=== PATIENT | male | born 1965 | race Caucasian/White ===

== ENCOUNTER 2018-03-09 10:20 | Inpatient (IN) ==
--- NOTE | 2018-03-09 11:03 | Emergency Department Note ---
Disposition Clinical Impression: Suicidal ideation Depression Qualifiers: Depression Type: unspecified Qualified Code(s): F32.9 - Major depressive disorder, single episode, unspecified Disposition: Admitted As Inpatient Condition: Undetermined Time of Disposition: 18:06 Psych HPI - General Chief Complaint: ED Psychiatric Symptoms Stated Complaint: SI,psych eval, depressed Time Seen by Provider: 03/09/18 10:46 Source: patient Mode of arrival: ambulatory Limitations: no limitations Nursing Notes Reviewed: Yes Vital Signs Reviewed: Yes - History of Present Illness HPI Narrative: Nontoxic-appearing 53-year-old male presents for evaluation of worsening depression and thoughts of self-harm. He has battled worsening depression for the past couple months. He states that over the past 2 days, he has had thoughts of harming himself. He denies any active plan. He denies any thoughts of harming others. He states significant life stressors at home over the past couple of months that have led to this. Pt complaint: suicidal ideation, feels depressed Onset (ago): month(s) Duration: getting worse Improves with: none Worsens with: none Context: significant life stressor Associated Psychiatric Symptoms: depression, suicidal ideation Associated symptoms: Reports: denies other symptoms Traumatic symptoms: denies traumatic injury Self harm or harm to others: denies having a plan - Related Data Home Medications Medication Instructions Recorded Confirmed Naproxen [Naprosyn] 500 mg PO BID 08/26/16 03/09/18 Tamsulosin [Flomax] 0.4 mg PO DAILY 03/09/18 03/09/18 Venlafaxine [Effexor] 75 mg PO BID 03/09/18 03/09/18 Allergies Allergy/AdvReac Type Severity Reaction Status Date / Time No Known Allergies Allergy Verified 03/09/18 16:04 All systems ED: reviewed and negative except as stated. Constitutional: Denies: fever, chills, weakness, weight change Eyes: Denies: eye pain, eye discharge, vision change ENT ED: Denies: ear pain, throat pain, dental pain, hearing loss, epistaxis, congestion, dysphagia Cardiovascular: Denies: chest pain, palpitations, dyspnea on exertion, edema, syncope Respiratory: Denies: cough, dyspnea, wheezes, hemoptysis, stridor Gastrointestinal: Denies: abdominal pain, nausea, vomiting, diarrhea, constipation, hematemesis, melena, hematochezia Genitourinary: Denies: urgency, dysuria, frequency, hematuria Musculoskeletal: Denies: back pain, neck pain, arthralgia, myalgia Integumentary: Denies: rash, abrasion, lesions Neurological: Denies: headache, weakness, numbness, paresthesias, confusion, abnormal gait, vertigo Psychiatric: Reports: as per HPI, depression, suicidal thoughts. Denies: anxiety, homicidal thoughts, auditory hallucinations, visual hallucinations Endocrine: Denies: fatigue Hematological/Lymphatic: Denies: easy bleeding, easy bruising Allergic/Immunologic: Denies: facial swelling, urticaria Past Medical History - Past Medical History Attestation: Yes The following information was validated with the patient. Source: patient, nursing notes reviewed Medical history: Reports: other Psychiatric history: Reports: depression - Social History Smoking Status: Current every day smoker Smokeless Tobacco Status: No Alcohol use: Reports: none Drug use: Reports: marijuana Physical Exam - General Limitations: no limitations General appearance: alert - Head Head exam: atraumatic, normocephalic, normal inspection - Eye Eye exam: Present: normal appearance, PERRL, EOMI. Absent: nystagmus - ENT ENT exam: mucous membranes moist - Neck Neck exam: Present: normal inspection, full ROM, trachea midline - Chest Chest inspection: Present: normal inspection, symmetric chest wall rise - Respiratory Respiratory exam: Present: normal lung sounds bilaterally. Absent: respiratory distress, wheezes, stridor, accessory muscle use, prolonged expiratory phase - Cardiovascular Cardiovascular exam: Present: regular rate, normal rhythm, normal heart sounds - Abdominal Exam Abdominal exam: Present: soft, Non-Tender, normal bowel sounds - Extremities Exam Extremities exam: Present: normal inspection, full ROM. Absent: tenderness, pedal edema - Neurological Exam Neurological exam: Present: alert, oriented X3 - Psychiatric Psychiatric exam: Present: depressed - Skin Skin exam: Present: warm, dry, intact, normal color. Absent: rash Course Vital Signs Temperature 99.4 F 03/09/18 10:27 Pulse Rate 84 03/09/18 10:27 Respiratory Rate 20 03/09/18 10:27 Blood Pressure 192/84 03/09/18 10:27 O2 Sat by Pulse Oximetry 96 03/09/18 10:27 Temperature 99.4 F 03/09/18 10:27 Pulse Rate 84 03/09/18 10:27 Respiratory Rate 20 03/09/18 10:27 Blood Pressure 192/84 03/09/18 10:27 O2 Sat by Pulse Oximetry 96 03/09/18 10:27 Oxygen Delivery Oxygen Delivery Room Air Psych - Lab Data Result diagrams: 03/09/18 10:59 03/09/18 10:59 Lab Results 03/09/18 03/09/18 03/09/18 Range/Units 10:59 10:59 11:15 WBC 15.3 H (4.3-11.1) K/mcL RBC 5.39 (4.19-5.50) M/mcL Hgb 15.4 (12.9-16.9) g/dL Hct 47.9 (37.5-50.1) % MCV 88.9 (83.0-100.0) fL MCH 28.6 (28.0-33.3) pg MCHC 32.2 (31.6-35.5) g/dL RDW 15.5 H (11.5-14.5) % Plt Count 401 H (140-400) K/mcL MPV 9.1 L (9.4-12.4) fL Immature Gran % 0.7 (0-4) % Seg Neutrophils % 73.6 % Lymphocytes % 17.0 % Monocytes % 8.2 % Eosinophils % 0.2 % Basophils % 0.3 % Neutrophils # 11.3 H (1.6-8.9) K/mcL Lymphocytes # 2.6 (0.6-4.6) K/mcL Monocytes # 1.3 (0.0-1.3) K/mcL Eosinophils # 0.0 (0.0-0.6) K/mcL Basophils # 0.0 (0.0-0.2) K/mcL Sodium 138 (136-145) mEq/L Potassium 3.7 (3.5-5.1) mEq/L Chloride 108 H (98-107) mEq/L Carbon Dioxide 22 L (23-29) mEq/L BUN 7 (6-20) mg/dL Creatinine 0.74 (0.70-1.30) mg/dL Est GFR ( Amer) > 60 (> 60) Est GFR (Non-Af Amer) > 60 (> 60) BUN/Creatinine Ratio 9 (6-26) Glucose 133 H (70-105) mg/dL Calculated Osmolality 286 (280-300) Calcium 9.1 (8.6-10.3) mg/dL Urine Color Yellow (Yellow) Urine Clarity Clear (Clear) Urine pH 7.0 (5.0-8.0) pH Units Ur Specific [place] 1.014 (1.010-1.025) Urine Protein 100 H (Neg-Trace) mg/dL Urine Glucose (UA) Normal (Normal) mg/dL Urine Ketones Negative (Negative) mg/dL Urine Blood Small H (Negative) Urine Nitrite Negative (Negative) Urine Bilirubin Negative (Negative) Urine Urobilinogen Normal (Normal) mg/dL Ur Leukocyte Esterase Negative (Negative) Urine Microscopic RBC 0-3 (0-3) per hpf Urine Microscopic WBC 0-3 (0-3) per hpf Ur Squamous Epith Cells Moderate H (None-Few) per lpf Urine Bacteria None Seen (None-Few) per hpf Hyaline Casts None Seen (None-Few) per lpf Salicylates < 2.5 L (15.0-30.0) mg/dL Urine Opiates Screen (Neyvaj=740) ng/mL Acetaminophen < 10 L (10-20) mcg/mL Ur Barbiturates Screen (Vdphuk=119) ng/mL Ur Phencyclidine Scrn (Cutoff=25) ng/mL Ur Amphetamines Screen (Voaypf=4701) ng/mL U Benzodiazepines Scrn (Crwunw=367) ng/mL Urine Cocaine Screen (Cutoff= 300) ng/mL U Marijuana (THC) Screen (Cutoff = 50) ng/mL Ethyl Alcohol < 10 (Less than 10) mg/dL 03/09/18 Range/Units 11:15 WBC (4.3-11.1) K/mcL RBC (4.19-5.50) M/mcL Hgb (12.9-16.9) g/dL Hct (37.5-50.1) % MCV (83.0-100.0) fL MCH (28.0-33.3) pg MCHC (31.6-35.5) g/dL RDW (11.5-14.5) % Plt Count (140-400) K/mcL MPV (9.4-12.4) fL Immature Gran % (0-4) % Seg Neutrophils % % Lymphocytes % % Monocytes % % Eosinophils % % Basophils % % Neutrophils # (1.6-8.9) K/mcL Lymphocytes # (0.6-4.6) K/mcL Monocytes # (0.0-1.3) K/mcL Eosinophils # (0.0-0.6) K/mcL Basophils # (0.0-0.2) K/mcL Sodium (136-145) mEq/L Potassium (3.5-5.1) mEq/L Chloride (98-107) mEq/L Carbon Dioxide (23-29) mEq/L BUN (6-20) mg/dL Creatinine (0.70-1.30) mg/dL Est GFR ( Amer) (> 60) Est GFR (Non-Af Amer) (> 60) BUN/Creatinine Ratio (6-26) Glucose (70-105) mg/dL Calculated Osmolality (280-300) Calcium (8.6-10.3) mg/dL Urine Color (Yellow) Urine Clarity (Clear) Urine pH (5.0-8.0) pH Units Ur Specific [place] (1.010-1.025) Urine Protein (Neg-Trace) mg/dL Urine Glucose (UA) (Normal) mg/dL Urine Ketones (Negative) mg/dL Urine Blood (Negative) Urine Nitrite (Negative) Urine Bilirubin (Negative) Urine Urobilinogen (Normal) mg/dL Ur Leukocyte Esterase (Negative) Urine Microscopic RBC (0-3) per hpf Urine Microscopic WBC (0-3) per hpf Ur Squamous Epith Cells (None-Few) per lpf Urine Bacteria (None-Few) per hpf Hyaline Casts (None-Few) per lpf Salicylates (15.0-30.0) mg/dL Urine Opiates Screen Positive H (Ykbmtq=319) ng/mL Acetaminophen (10-20) mcg/mL Ur Barbiturates Screen Negative (Mnnkxg=880) ng/mL Ur Phencyclidine Scrn Negative (Cutoff=25) ng/mL Ur Amphetamines Screen Negative (Strwnr=4430) ng/mL U Benzodiazepines Scrn Negative (Xmizmd=916) ng/mL Urine Cocaine Screen Negative (Cutoff= 300) ng/mL U Marijuana (THC) Screen Positive H (Cutoff = 50) ng/mL Ethyl Alcohol (Less than 10) mg/dL Psychiatric Medical Clearance - Medical Clearance Checklist Does the patient have a NEW psychiatric condition?: No Any abnormalities indicating possible medical illness?: No Any history of medical issues?: No Medical History: No Social History Section defined Any abnormal vital signs prior to transfer?: Yes Current Vitals: Last Vital Signs Temp 99.4 F 03/09/18 10:27 Pulse 84 03/09/18 10:27 Resp 20 03/09/18 10:27 BP 192/84 03/09/18 10:27 Pulse Ox 96 03/09/18 10:27 Is the patient intoxicated or cognitively impaired?: No Psychiatric Lab Panel: Drug Levels and Toxicity 03/09/18 03/09/18 10:59 11:15 Urine Opiates Screen Positive H Acetaminophen < 10 L Ur Barbiturates Screen Negative Ur Phencyclidine Scrn Negative Ur Amphetamines Screen Negative U Benzodiazepines Scrn Negative Urine Cocaine Screen Negative U Marijuana (THC) Screen Positive H Ethyl Alcohol < 10 Any abnormalities on the physical exam?: No Any abnormal labs?: Yes (wbc) Abnormal Labs: Abnormal lab results WBC 15.3 K/mcL (4.3-11.1) H 03/09/18 10:59 RDW 15.5 % (11.5-14.5) H 03/09/18 10:59 Plt Count 401 K/mcL (140-400) H 03/09/18 10:59 MPV 9.1 fL (9.4-12.4) L 03/09/18 10:59 Neutrophils # 11.3 K/mcL (1.6-8.9) H 03/09/18 10:59 Chloride 108 mEq/L (98-107) H 03/09/18 10:59 Carbon Dioxide 22 mEq/L (23-29) L 03/09/18 10:59 Glucose 133 mg/dL (70-105) H 03/09/18 10:59 Urine Protein 100 mg/dL (Neg-Trace) H 03/09/18 11:15 Urine Blood Small (Negative) H 03/09/18 11:15 Ur Squamous Epith Cells Moderate per lpf (None-Few) H 03/09/18 11:15 Salicylates < 2.5 mg/dL (15.0-30.0) L 03/09/18 10:59 Urine Opiates Screen Positive ng/mL (Ijuiza=712) H 03/09/18 11:15 Acetaminophen < 10 mcg/mL (10-20) L 03/09/18 10:59 U Marijuana (THC) Screen Positive ng/mL (Cutoff = 50) H 03/09/18 11:15 Does the patient require durable medical equiptment?: No Is the patient ambulatory?: Yes Is the patient a fall risk?: No Has the patient been medically cleared?: Yes Any acute medical condition require Tx prior to transfer?: No Statement of Medical Clearance: I have evaluated the patient, reviewed diagnostic information, and certify that the patient's medical condition is sufficiently stable that transfer to the psychiatric unit does not pose a significant risk of deterioration.
[2018-03-09 11:13] LABS: Basophils % 0.3 %; Eosinophils % 0.2 %; Hematocrit 47.9 % (37.5-50.1); Hemoglobin 15.4 g/dL (12.9-16.9); Immature Granulocytes % 0.7 % (0-4); Lymphocytes # 2.6 K/mcL (0.6-4.6); Mean Corpuscular HGB Conc 32.2 g/dL (31.6-35.5); Mean Corpuscular Hemoglobin 28.6 pg (28.0-33.3); Mean Corpuscular Volume 88.9 fL (83.0-100.0); Mean Platelet Volume 9.1 fL (9.4-12.4); Monocytes # 1.3 K/mcL (0.0-1.3); Monocytes % 8.2 %; Neutrophils # 11.3 K/mcL (1.6-8.9); Platelet Count 401 K/mcL (140-400); Red Blood Count 5.39 M/mcL (4.19-5.50); Red Cell Distribution Width 15.5 % (11.5-14.5); Segmented Neutrophils % 73.6 %
[2018-03-09 11:31] LABS: Acetaminophen < 10 mcg/mL (10-20); BUN/Creatinine Ratio 9 (6-26); Blood Urea Nitrogen 7 mg/dL (6-20); Calcium 9.1 mg/dL (8.6-10.3); Carbon Dioxide 22 mEq/L (23-29); Chloride 108 mEq/L (98-107); Ethanol < 10 mg/dL (Less than 10); Glucose 133 mg/dL (70-105); Osmolality,Calculated 286 (280-300); Potassium 3.7 mEq/L (3.5-5.1); Salicylate < 2.5 mg/dL (15.0-30.0); Sodium 138 mEq/L (136-145); eGFR For African Americans > 60 (> 60); eGFR For Non-African Americans > 60 (> 60)
[2018-03-09 11:37] LABS: Bilirubin,Urine Negative (Negative); Blood,Urine Small (Negative); Clarity,Urine Clear (Clear); Color,Urine Yellow (Yellow); Glucose,Urine (UA) Normal (Normal); Ketones,Urine Negative (Negative); Leukocyte Esterase,Urine Negative (Negative); Nitrite,Urine Negative (Negative); Protein,Urine 100 mg/dL (Neg-Trace); Specific Gravity,Urine 1.014 (1.010-1.025); Urobilinogen,Urine Normal (Normal)
[2018-03-09 11:39] LABS: Bacteria,Urine None Seen per hpf (None-Few); Hyaline Casts,Urine None Seen per lpf (None-Few); RBC,Urine 0-3 per hpf (0-3); Squamous Epithelial Cell,Urine Moderate per lpf (None-Few); WBC,Urine 0-3 per hpf (0-3)
[2018-03-09 12:53] LABS: Amphetamine Screen,Urine Negative ng/mL (Cutoff=1000); Barbiturate Screen,Urine Negative ng/mL (Cutoff=200); Benzodiazepines Screen,Urine Negative ng/mL (Cutoff=200); Cannabinoid Screen,Urine Positive ng/mL (Cutoff = 50); Cocaine Screen,Urine Negative ng/mL (Cutoff= 300); Opiate Screen,Urine Positive ng/mL (Cutoff=300); Phencyclidine Screen,Urine Negative ng/mL (Cutoff=25)
--- NOTE | 2018-03-09 16:03 | Emergency Department Note ---
Disposition Clinical Impression: Suicidal ideation, Depression Disposition: Admitted As Inpatient Condition: Undetermined General Adult HPI - General Chief complaint: ED Psychiatric Symptoms Stated complaint: SI,psych eval, depressed Time Seen by Provider: 03/09/18 10:46 Source: patient Mode of arrival: ambulatory Limitations: no limitations - History of Present Illness Pain Scale: 5 - Related Data Home Medications Medication Instructions Recorded Confirmed Naproxen [Naprosyn] 500 mg PO BID 08/26/16 03/09/18 Tamsulosin [Flomax] 0.4 mg PO DAILY 03/09/18 03/09/18 Venlafaxine [Effexor] 75 mg PO BID 03/09/18 03/09/18 Allergies Allergy/AdvReac Type Severity Reaction Status Date / Time No Known Allergies Allergy Verified 03/09/18 16:04 Constitutional: Denies: fever, chills, weakness, weight change Eyes: Denies: eye pain, eye discharge, vision change ENT ED: Denies: ear pain, throat pain, dental pain, hearing loss, epistaxis, congestion, dysphagia Cardiovascular: Denies: chest pain, palpitations, dyspnea on exertion, edema, syncope Respiratory: Denies: cough, dyspnea, wheezes, hemoptysis, stridor Gastrointestinal: Denies: abdominal pain, nausea, vomiting, diarrhea, constipation, hematemesis, melena, hematochezia Genitourinary: Denies: urgency, dysuria, frequency, hematuria Musculoskeletal: Denies: back pain, neck pain, arthralgia, myalgia Integumentary: Denies: rash, abrasion, lesions Neurological: Denies: headache, weakness, numbness, paresthesias, confusion, abnormal gait, vertigo Psychiatric: Reports: as per HPI, depression, suicidal thoughts. Denies: anxiety, homicidal thoughts, auditory hallucinations, visual hallucinations Endocrine: Denies: fatigue Hematological/Lymphatic: Denies: easy bleeding, easy bruising Allergic/Immunologic: Denies: facial swelling, urticaria Past Medical History - Past Medical History Medical history: Reports: other Psychiatric history: Reports: depression - Social History Smoking Status: Current every day smoker Smokeless Tobacco Status: No Alcohol use: Reports: none Drug use: Reports: marijuana Physical Exam - General Limitations: no limitations General appearance: alert Course Vital Signs Temperature 99.4 F 03/09/18 10:27 Pulse Rate 84 03/09/18 10:27 Respiratory Rate 20 06/12/18 10:27 Blood Pressure 192/84 03/09/18 10:27 O2 Sat by Pulse Oximetry 96 03/09/18 10:27 Temperature 98.1 F 03/09/18 21:00 Pulse Rate 67 03/09/18 21:00 Respiratory Rate 20 03/09/18 21:00 Blood Pressure 146/79 03/09/18 21:00 O2 Sat by Pulse Oximetry 96 03/09/18 10:27 Oxygen Delivery Oxygen Delivery Room Air Medical Decision Making - Lab Data Result diagrams: 03/09/18 10:59 03/09/18 10:59 Lab Results 03/09/18 03/09/18 03/09/18 Range/Units 10:59 10:59 11:15 WBC 15.3 H (4.3-11.1) K/mcL RBC 5.39 (4.19-5.50) M/mcL Hgb 15.4 (12.9-16.9) g/dL Hct 47.9 (37.5-50.1) % MCV 88.9 (83.0-100.0) fL MCH 28.6 (28.0-33.3) pg MCHC 32.2 (31.6-35.5) g/dL RDW 15.5 H (11.5-14.5) % Plt Count 401 H (140-400) K/mcL MPV 9.1 L (9.4-12.4) fL Immature Gran % 0.7 (0-4) % Seg Neutrophils % 73.6 % Lymphocytes % 17.0 % Monocytes % 8.2 % Eosinophils % 0.2 % Basophils % 0.3 % Neutrophils # 11.3 H (1.6-8.9) K/mcL Lymphocytes # 2.6 (0.6-4.6) K/mcL Monocytes # 1.3 (0.0-1.3) K/mcL Eosinophils # 0.0 (0.0-0.6) K/mcL Basophils # 0.0 (0.0-0.2) K/mcL Sodium 138 (136-145) mEq/L Potassium 3.7 (3.5-5.1) mEq/L Chloride 108 H (98-107) mEq/L Carbon Dioxide 22 L (23-29) mEq/L BUN 7 (6-20) mg/dL Creatinine 0.74 (0.70-1.30) mg/dL Est GFR ( Amer) > 60 (> 60) Est GFR (Non-Af Amer) > 60 (> 60) BUN/Creatinine Ratio 9 (6-26) Glucose 133 H (70-105) mg/dL Calculated Osmolality 286 (280-300) Calcium 9.1 (8.6-10.3) mg/dL Urine Color Yellow (Yellow) Urine Clarity Clear (Clear) Urine pH 7.0 (5.0-8.0) pH Units Ur Specific [place] 1.014 (1.010-1.025) Urine Protein 100 H (Neg-Trace) mg/dL Urine Glucose (UA) Normal (Normal) mg/dL Urine Ketones Negative (Negative) mg/dL Urine Blood Small H (Negative) Urine Nitrite Negative (Negative) Urine Bilirubin Negative (Negative) Urine Urobilinogen Normal (Normal) mg/dL Ur Leukocyte Esterase Negative (Negative) Urine Microscopic RBC 0-3 (0-3) per hpf Urine Microscopic WBC 0-3 (0-3) per hpf Ur Squamous Epith Cells Moderate H (None-Few) per lpf Urine Bacteria None Seen (None-Few) per hpf Hyaline Casts None Seen (None-Few) per lpf Salicylates < 2.5 L (15.0-30.0) mg/dL Urine Opiates Screen (Gpsfzp=959) ng/mL Acetaminophen < 10 L (10-20) mcg/mL Ur Barbiturates Screen (Wwalkk=945) ng/mL Ur Phencyclidine Scrn (Cutoff=25) ng/mL Ur Amphetamines Screen (Iturql=0537) ng/mL U Benzodiazepines Scrn (Nsofhs=931) ng/mL Urine Cocaine Screen (Cutoff= 300) ng/mL U Marijuana (THC) Screen (Cutoff = 50) ng/mL Ethyl Alcohol < 10 (Less than 10) mg/dL 03/09/18 Range/Units 11:15 WBC (4.3-11.1) K/mcL RBC (4.19-5.50) M/mcL Hgb (12.9-16.9) g/dL Hct (37.5-50.1) % MCV (83.0-100.0) fL MCH (28.0-33.3) pg MCHC (31.6-35.5) g/dL RDW (11.5-14.5) % Plt Count (140-400) K/mcL MPV (9.4-12.4) fL Immature Gran % (0-4) % Seg Neutrophils % % Lymphocytes % % Monocytes % % Eosinophils % % Basophils % % Neutrophils # (1.6-8.9) K/mcL Lymphocytes # (0.6-4.6) K/mcL Monocytes # (0.0-1.3) K/mcL Eosinophils # (0.0-0.6) K/mcL Basophils # (0.0-0.2) K/mcL Sodium (136-145) mEq/L Potassium (3.5-5.1) mEq/L Chloride (98-107) mEq/L Carbon Dioxide (23-29) mEq/L BUN (6-20) mg/dL Creatinine (0.70-1.30) mg/dL Est GFR ( Amer) (> 60) Est GFR (Non-Af Amer) (> 60) BUN/Creatinine Ratio (6-26) Glucose (70-105) mg/dL Calculated Osmolality (280-300) Calcium (8.6-10.3) mg/dL Urine Color (Yellow) Urine Clarity (Clear) Urine pH (5.0-8.0) pH Units Ur Specific [place] (1.010-1.025) Urine Protein (Neg-Trace) mg/dL Urine Glucose (UA) (Normal) mg/dL Urine Ketones (Negative) mg/dL Urine Blood (Negative) Urine Nitrite (Negative) Urine Bilirubin (Negative) Urine Urobilinogen (Normal) mg/dL Ur Leukocyte Esterase (Negative) Urine Microscopic RBC (0-3) per hpf Urine Microscopic WBC (0-3) per hpf Ur Squamous Epith Cells (None-Few) per lpf Urine Bacteria (None-Few) per hpf Hyaline Casts (None-Few) per lpf Salicylates (15.0-30.0) mg/dL Urine Opiates Screen Positive H (Ghsffk=416) ng/mL Acetaminophen (10-20) mcg/mL Ur Barbiturates Screen Negative (Ajdzws=791) ng/mL Ur Phencyclidine Scrn Negative (Cutoff=25) ng/mL Ur Amphetamines Screen Negative (Sttqbb=4191) ng/mL U Benzodiazepines Scrn Negative (Kmpxuz=547) ng/mL Urine Cocaine Screen Negative (Cutoff= 300) ng/mL U Marijuana (THC) Screen Positive H (Cutoff = 50) ng/mL Ethyl Alcohol (Less than 10) mg/dL Attestation Statement - Attestation Attestation: For this encounter, I have reviewed the [employer] or PA documentation, treatment plan, and medical decision making; and I have had face to face time with this patient. [id number] time provided Patient appears in no acute distress. He is speaking with the pharmacy services director at the time of my eval. Medical clearance labs reviewed by me
[2018-03-09] MEDS ORDERED: Nicotine 21 MG PATCH.TD24 TD STA (17:17)
[2018-03-09] MEDS ORDERED: *HR* LORazepam 1 MG TABLET PO ONE (17:17)
[2018-03-09] MEDS ORDERED: Haloperidol Lactate 5 MG/ML VIAL IM PRN (17:37)
[2018-03-09] MEDS ORDERED: MOM Conc 10 ML UD.LIQ PO PRN (17:37)
[2018-03-09] MEDS ORDERED: Mag Hydrox/Al Hydrox/Simeth 30 ML UDC PO PRN (17:37)
[2018-03-09] MEDS ORDERED: *HR* LORazepam 1 MG TABLET PO PRN (17:37)
[2018-03-09] MEDS ORDERED: *HR* LORazepam 2 MG/ML VIAL IM PRN (17:37)
--- NOTE | 2018-03-09 17:53 | Psychiatry History & Physical ---
Date of Encounter: 03/09/18 Time of Encounter: 17:30 History of Present Illness Patient Stated Chief Complaint: I was thinking about it on Thursday Medicare Admission Attestation: For traditional Medicare patients the provided hospital inpatient services are reasonable and necessary and in the case of services not specified as inpatient -only under 42 CFR 419.22 (n), that they are appropriately provided as inpatient services in accordance 42 CFR 412.3. For Critical Access Hospital the patient may reasonably be expected to be discharged or transferred to a hospital within 96 hours after admission to the Critical Access Hospital. Admitted From: Emergency Dept Plans for Post Hospital Care: Home History of Present Illness: Pt is a 53 yo ,, male, marriedx1, with 2 daughters who presents for depression . Pt noted he currently lives in [place], [place], it was with my till Thursday. Pt noted recent exacerbation of depression. Pt states when I came in I thought I wanted to hurt myself. Pt noted I came in because I needed some help I feel much better now. I feel safe and comfortable on the unit. Pt denied any side effects to current medications. Pt was in agreement with current treatment plan. Pt noted that he is doing alright today. Pt noted he slept 9 hours broken night. Pt noted his appetite is good. Pt rated his depression a 5, on a scale of zero to ten with ten being the worst and zero being none. Pt rate his anxiety a 3, on the same scale. Pt denied any auditory or visual hallucinations. Pt denied any current thoughts to harm himself or anyone else. Pt noted that his mother is alive and lives next door to them. PT noted my dad 25 years ago from cancer. Pt noted that his highest level of education is [employer] with a couple years of college. Pt noted he is currently unemployed. Pt denied any inpt psychiatric hospitalizations. Pt denied any previous suicide attempts. Pt denied any family hx of suicides. PT denied any family mental health hx. Pt denied any hx of abuse trauma or neglect. Pt noted hx of seizures, and has a VNS installed. Pt denied TBI, Seizures, HEP C or HIV. No TD noted, AIMS=0 MSE: Alert and Oriented x3 Appearance: appropriately groomed dressed in civilian attire Behavior: Polite, friendly, courteous Speech: fluent, normal tone, normal rate Mood: better but I am depression Affect: mood congruent Thought content: no HI noted, no SI noted, no delusions noted Psychosis: none noted, currently does not appear to be responding to internal stimuli. Thought Process: linear logical, goal directed Judgment: fair. Insight: fair. Assessment/Plan 1.Interval hx 2.Continue current medications 3.Review current labs 4.Pt had an opportunity to ask questions and discuss current treatment plan. 5.Supportive therapy was provided 6.Pt encouraged to consider group or individual therapy 7.Pt was in agreement with treatment plan. 8.Pt was educated on the risks benefits and side effects of current medications. Past Med Surg Social Fam HX - Past Medical History Medical history: other - Social History Smoking Status: Current every day smoker Smokeless Tobacco Status: No Alcohol use: none Drug use: marijuana Medications & Allergies Naproxen [Naprosyn] 500 mg PO BID 08/26/16 [History] Tamsulosin [Flomax] 0.4 mg PO DAILY 03/09/18 [History] Venlafaxine [Effexor] 75 mg PO BID 03/09/18 [History] 3 Allergy/AdvReac Type Severity Reaction Status Date / Time No Known Allergies Allergy Verified 03/09/18 16:04 Review of Systems Constitutional: Denies: fever, chills, weakness, weight change Eyes: Denies: eye pain, vision change Ears, Nose, Throat: Denies: ear pain, throat pain, dental pain, hearing loss, congestion Cardiovascular: Denies: chest pain, palpitations, dyspnea on exertion Respiratory: Denies: cough, dyspnea, wheezes Gastrointestinal: Denies: abdominal pain, nausea, vomiting, diarrhea, constipation Genitourinary male: Denies: urgency, dysuria, frequency, genital lesions Musculoskeletal: Denies: joint swelling, joint pain Integumentary: Denies: rash, lesions, pruritus Neurological: Denies: headache, weakness, numbness, memory loss Endocrine: Denies: fatigue, heat or cold intolerance Hematologic/Lymphatic: Denies: easy bruising, lymphadenopathy Allergic/Immunologic: Denies: urticaria, itchy eyes Exam - HEENT Head exam IM: Present: atraumatic Eye exam IM: Present: EOMI, normal appearance, PERRL ENT exam IM: Present: normal exam - Neurological Neurological exam: Present: CN II-XII intact - Respiratory Respiratory exam IM: Present: CTAB - GI/Abdominal GI/Abdominal exam IM: Present: normal bowel sounds, soft. Absent: tenderness - Extremities Extremities exam IM: Present: full ROM - Skin Skin exam IM: Present: dry, warm - Constitutional Vitals: Temp Pulse Resp BP Pulse Ox 99.4 F 84 20 192/84 96 03/09/18 10:27 03/09/18 10:27 03/09/18 10:27 03/09/18 10:27 03/09/18 10:27 General appearance: age & developmentally appropriate, well-groomed, well- nourished - Musculoskeletal Gait: normal Station: relaxed Strength & Tone: normal for patient - Psychiatric Patient Orientation: Yes Person, Yes Time, Yes Place Level of alertness: Alert Behavior: calm, cooperative Psychomotor activity: Normal Eye Contact: Maintains Eye Contact Mood Description: Euthymic/stable Affect description: congruent with mood, full range Speech Volume: Normal Speech pattern: normal rate, normal rhythm, normal tone, fluent, spontaneous Language & Vocabulary: consistent with education Thought Process: Linear, Goal Oriented Thought Content: Yes Suicidal ideation, No Homicidal ideation, No Overt delusions Perceptual Disturbances: No Auditory hallucinations, No Visual hallucinations Attention Span Ability: Capable of Focused Attention Memory Description: Grossly Intact Patient Reliability: Reliable Historian Fund of knowledge: Yes abstraction ability, Yes average, Yes aware of current events Intelligence Estimate: Average Judgment: Limited Insight: Partial Results - Labs Labs: Laboratory Last Values WBC 15.3 K/mcL (4.3-11.1) H 03/09/18 10:59 RBC 5.39 M/mcL (4.19-5.50) 03/09/18 10:59 Hgb 15.4 g/dL (12.9-16.9) 03/09/18 10:59 Hct 47.9 % (37.5-50.1) 03/09/18 10:59 MCV 88.9 fL (83.0-100.0) 03/09/18 10:59 MCH 28.6 pg (28.0-33.3) 03/09/18 10:59 MCHC 32.2 g/dL (31.6-35.5) 03/09/18 10:59 RDW 15.5 % (11.5-14.5) H 03/09/18 10:59 Plt Count 401 K/mcL (140-400) H 03/09/18 10:59 MPV 9.1 fL (9.4-12.4) L 03/09/18 10:59 Immature Gran % 0.7 % (0-4) 03/09/18 10:59 Seg Neutrophils % 73.6 % 03/09/18 10:59 Lymphocytes % 17.0 % 03/09/18 10:59 Monocytes % 8.2 % 03/09/18 10:59 Eosinophils % 0.2 % 03/09/18 10:59 Basophils % 0.3 % 03/09/18 10:59 Neutrophils # 11.3 K/mcL (1.6-8.9) H 03/09/18 10:59 Lymphocytes # 2.6 K/mcL (0.6-4.6) 03/09/18 10:59 Monocytes # 1.3 K/mcL (0.0-1.3) 03/09/18 10:59 Eosinophils # 0.0 K/mcL (0.0-0.6) 03/09/18 10:59 Basophils # 0.0 K/mcL (0.0-0.2) 03/09/18 10:59 Sodium 138 mEq/L (136-145) 03/09/18 10:59 Potassium 3.7 mEq/L (3.5-5.1) 03/09/18 10:59 Chloride 108 mEq/L (98-107) H 03/09/18 10:59 Carbon Dioxide 22 mEq/L (23-29) L 03/09/18 10:59 BUN 7 mg/dL (6-20) 03/09/18 10:59 Creatinine 0.74 mg/dL (0.70-1.30) 03/09/18 10:59 Est GFR ( Amer) > 60 (> 60) 03/09/18 10:59 Est GFR (Non-Af Amer) > 60 (> 60) 03/09/18 10:59 BUN/Creatinine Ratio 9 (6-26) 03/09/18 10:59 Glucose 133 mg/dL (70-105) H 03/09/18 10:59 Calculated Osmolality 286 (280-300) 03/09/18 10:59 Calcium 9.1 mg/dL (8.6-10.3) 03/09/18 10:59 Urine Color Yellow (Yellow) 03/09/18 11:15 Urine Clarity Clear (Clear) 03/09/18 11:15 Urine pH 7.0 pH Units (5.0-8.0) 03/09/18 11:15 Ur Specific [place] 1.014 (1.010-1.025) 03/09/18 11:15 Urine Protein 100 mg/dL (Neg-Trace) H 03/09/18 11:15 Urine Glucose (UA) Normal mg/dL (Normal) 03/09/18 11:15 Urine Ketones Negative mg/dL (Negative) 03/09/18 11:15 Urine Blood Small (Negative) H 03/09/18 11:15 Urine Nitrite Negative (Negative) 03/09/18 11:15 Urine Bilirubin Negative (Negative) 03/09/18 11:15 Urine Urobilinogen Normal mg/dL (Normal) 03/09/18 11:15 Ur Leukocyte Esterase Negative (Negative) 03/09/18 11:15 Urine Microscopic RBC 0-3 per hpf (0-3) 03/09/18 11:15 Urine Microscopic WBC 0-3 per hpf (0-3) 03/09/18 11:15 Ur Squamous Epith Cells Moderate per lpf (None-Few) H 03/09/18 11:15 Urine Bacteria None Seen per hpf (None-Few) 03/09/18 11:15 Hyaline Casts None Seen per lpf (None-Few) 03/09/18 11:15 Salicylates < 2.5 mg/dL (15.0-30.0) L 03/09/18 10:59 Urine Opiates Screen Positive ng/mL (Vyfgpf=944) H 03/09/18 11:15 Acetaminophen < 10 mcg/mL (10-20) L 03/09/18 10:59 Ur Barbiturates Screen Negative ng/mL (Ycfgpe=846) 03/09/18 11:15 Ur Phencyclidine Scrn Negative ng/mL (Cutoff=25) 03/09/18 11:15 Ur Amphetamines Screen Negative ng/mL (Yxbghx=0456) 03/09/18 11:15 U Benzodiazepines Scrn Negative ng/mL (Egnmyn=144) 03/09/18 11:15 Urine Cocaine Screen Negative ng/mL (Cutoff= 300) 03/09/18 11:15 U Marijuana (THC) Screen Positive ng/mL (Cutoff = 50) H 03/09/18 11:15 Ethyl Alcohol < 10 mg/dL (Less than 10) 03/09/18 10:59 Assessment and Plan (1) Depression Current visit: Yes Status: Acute Plan: Admit inpatient for safety and stabilization, Close observation, Suicide Precautions per unit protocol, Encourage participation in unit milieu Risks, benefits, side effects, alternatives discussed w/pt: Yes Patient agreeable to treatment: Yes Plans for Post Hospital Care: Home Qualifiers: Depression Type: major depressive disorder Major depression recurrence: recurrent Active/Remission status: currently active Major depression episode severity: severe Psychotic features: without psychotic features Qualified Code(s): F33.2 - Major depressive disorder, recurrent severe without psychotic features (2) Suicidal ideation Current visit: Yes Status: Acute Plan: Admit inpatient for safety and stabilization, Close observation, Suicide Precautions per unit protocol, Encourage participation in unit milieu, Group Therapy Risks, benefits, side effects, alternatives discussed w/pt: Yes Patient agreeable to treatment: Yes Plans for Post Hospital Care: Home
[2018-03-09] MEDS: Nicotine 21 MG PATCH.TD24 TD SCH (18:21)
[2018-03-09] MEDS: ARIPiprazole 5 MG TABLET PO SCH (21:18)
[2018-03-09] MEDS: traZODone 50 MG TABLET PO PRN (21:19)
[2018-03-10] MEDS: Nicotine 21 MG PATCH.TD24 TD SCH ×2 (08:05→08:31)
[2018-03-10] MEDS: Venlafaxine XR (24 HR) 150 MG CAP.ER.24H PO SCH (08:06)
[2018-03-10] MEDS: Acetaminophen 325 MG TABLET PO PRN ×2 (10:20→17:54)
--- NOTE | 2018-03-10 17:01 | Psychiatry Progress Note ---
Date of Encounter: 03/10/18 Time of Encounter: 16:45 Subjective Interval history: Pt is a 53 yo ,, male, marriedx1, with 2 daughters who presents for depression . Pt noted he currently lives in [place], [place], it was with my till Thursday. Pt noted recent exacerbation of depression. Pt noted he is doing much better today. Pt family met with pt and provider and noted a long hx of depression that the pt is finally confronting. PT noted that he feels safe and comfortable on the unit. Pt denied any side effects to current medications. Pt was in agreement with current treatment plan. Pt noted that he is doing better today. Pt noted he slept 8 hours broken night. Pt noted his appetite is good.....back to normal. Pt rated his depression a 2, on a scale of zero to ten with ten being the worst and zero being none. Pt rate his anxiety a 2, on the same scale. Pt denied any auditory or visual hallucinations. Pt denied any current thoughts to harm himself or anyone else. Pt denied TBI, Seizures, HEP C or HIV. No TD noted, AIMS=0 MSE: Alert and Oriented x3 Appearance: appropriately groomed dressed in civilian attire Behavior: Polite, friendly, courteous Speech: fluent, normal tone, normal rate Mood: better today Affect: mood congruent Thought content: no HI noted, no SI noted, no delusions noted Psychosis: none noted, currently does not appear to be responding to internal stimuli. Thought Process: linear logical, goal directed Judgment: fair. Insight: fair. Assessment/Plan 1.Interval hx 2.Continue current medications 3.Review current labs 4.Pt had an opportunity to ask questions and discuss current treatment plan. 5.Supportive therapy was provided 6.Pt encouraged to consider group or individual therapy 7.Pt was in agreement with treatment plan. 8.Pt was educated on the risks benefits and side effects of current medications. Review of Systems Constitutional: Denies: fever, chills, weakness, weight change Eyes: Denies: eye pain, vision change Ears, Nose, Throat: Denies: ear pain, throat pain, dental pain, hearing loss, congestion Cardiovascular: Denies: chest pain, palpitations, dyspnea on exertion Respiratory: Denies: cough, dyspnea, wheezes Gastrointestinal: Denies: abdominal pain, nausea, vomiting, diarrhea, constipation Musculoskeletal: Denies: joint swelling, joint pain Neurological: Denies: headache, weakness, numbness, memory loss Psychiatric: Reports: depression, abnormal sleep pattern, suicidal ideation, change in appetite, anhedonia Results - Vital Signs Vital Signs: Temp Pulse Resp BP Pulse Ox 97.5 F L 74 18 151/91 96 03/10/18 09:00 03/10/18 09:00 03/10/18 09:00 03/10/18 09:00 03/09/18 10:27 - Labs Labs: Laboratory Results - last 24 hr 03/09/18 20:17 POC Glucose 114 H Assessment and Plan (1) Depression Current visit: Yes Status: Acute Plan: Continue hospitalization, Close observation, Suicide Precautions per unit protocol, Encourage participation in unit milieu, Group Therapy, Monitor sleep, Monitor appetite Risks, benefits, side effects, alternatives discussed w/pt: Yes Patient agreeable to treatment: Yes Qualifiers: Depression Type: major depressive disorder Major depression recurrence: recurrent Active/Remission status: currently active Major depression episode severity: severe Psychotic features: without psychotic features Qualified Code(s): F33.2 - Major depressive disorder, recurrent severe without psychotic features (2) Suicidal ideation Current visit: Yes Status: Acute Plan: Continue hospitalization, Close observation, Suicide Precautions per unit protocol, Encourage participation in unit milieu, Group Therapy, Monitor sleep, Monitor appetite Risks, benefits, side effects, alternatives discussed w/pt: Yes Patient agreeable to treatment: Yes Consult Discharge Plan - Plan Referrals: [facility] [Outside] - 03/15/18 2:00 pm (The above appointment is with Steve Pizano for mental health counselling. He will refer you to a psychiatrist.Please arrive 30 minues early: *1:30pm. Bring proof of income, insurance card and photo ID. If you are having a crisis please call or walk in the office during business hours. ) Darren Swift MD [Partnered Physician] - 03/19/18 1:40 pm (The above appointment is with Dr. Jamison BASSETT for primary care and outpatient follow up. ) Psychiatry Exam - Constitutional Vitals: Temp Pulse Resp BP Pulse Ox 97.5 F L 74 18 151/91 96 03/10/18 09:00 03/10/18 09:00 03/10/18 09:00 03/10/18 09:00 03/09/18 10:27 General appearance: age & developmentally appropriate, well-groomed, well- nourished - Musculoskeletal Gait: normal Station: relaxed Strength & Tone: normal for patient - Psychiatric Patient Orientation: Yes Person, Yes Time, Yes Place Level of alertness: Alert Behavior: calm, cooperative Psychomotor activity: Normal Eye Contact: Maintains Eye Contact Mood Description: Euthymic/stable, Depressed Affect description: congruent with mood, full range Speech Volume: Normal Speech pattern: normal rate, normal rhythm, normal tone, fluent, spontaneous Language & Vocabulary: consistent with education Thought Process: Linear, Goal Oriented Thought Content: No Suicidal ideation, No Homicidal ideation, No Overt delusions Perceptual Disturbances: No Auditory hallucinations, No Visual hallucinations Attention Span Ability: Capable of Focused Attention Memory Description: Grossly Intact Patient Reliability: Reliable Historian Fund of knowledge: Yes abstraction ability, Yes aware of current events Intelligence Estimate: Average Judgment: Limited Insight: Partial
[2018-03-10] MEDS: hydrOXYzine pamoate 25 MG CAPSULE PO PRN (20:13)
[2018-03-10] MEDS: ARIPiprazole 5 MG TABLET PO SCH (20:13)
[2018-03-10] MEDS: traZODone 50 MG TABLET PO PRN (20:13)
[2018-03-11] MEDS: Acetaminophen 325 MG TABLET PO PRN (07:59)
[2018-03-11] MEDS: Venlafaxine XR (24 HR) 150 MG CAP.ER.24H PO SCH (08:44)
[2018-03-11] MEDS: Nicotine 21 MG PATCH.TD24 TD SCH (08:45)
[2018-03-11] MEDS: Ibuprofen 400 MG TABLET PO PRN (09:33)
--- NOTE | 2018-03-11 12:37 | Psychiatry Progress Note ---
Date of Encounter: 03/11/18 Time of Encounter: 12:30 Subjective Interval history: Pt is a 53 yo ,, male, marriedx1, with 2 daughters who presents for depression . Pt noted he currently lives in [place], [place], it was with my till Thursday. Pt noted recent exacerbation of depression. Pt noted he is doing much better today. Pt family met with pt and provider and noted a long hx of depression that the pt is finally confronting. PT noted that he feels safe and comfortable on the unit. Pt denied any side effects to current medications. Pt noted he felt safe and comfortable for discharge tomorrow. Pt was in agreement with current treatment plan. Pt noted that he is doing better today. Pt noted he slept 8 hours broken night. Pt noted his appetite is good.....back to normal. Pt rated his depression a 2, on a scale of zero to ten with ten being the worst and zero being none. Pt rate his anxiety a 2, on the same scale. Pt denied any auditory or visual hallucinations. Pt denied any current thoughts to harm himself or anyone else. Pt denied TBI, Seizures, HEP C or HIV. No TD noted, AIMS=0 MSE: Alert and Oriented x3 Appearance: appropriately groomed dressed in civilian attire Behavior: Polite, friendly, courteous Speech: fluent, normal tone, normal rate Mood: better today Affect: mood congruent Thought content: no HI noted, no SI noted, no delusions noted Psychosis: none noted, currently does not appear to be responding to internal stimuli. Thought Process: linear logical, goal directed Judgment: fair. Insight: fair. Assessment/Plan 1.Interval hx 2.Continue current medications 3.Review current labs 4.Pt had an opportunity to ask questions and discuss current treatment plan. 5.Supportive therapy was provided 6.Pt encouraged to consider group or individual therapy 7.Pt was in agreement with treatment plan. 8.Pt was educated on the risks benefits and side effects of current medications. 9. Pt in agreement for D/C home with cousin tomorrow. 10. Pt agreed to take all medications as prescribed 11. Abstain from any alcohol or illicit substances 12. Follow up with all scheduled appointments. Review of Systems Constitutional: Denies: fever, chills, weakness, weight change Eyes: Denies: eye pain, vision change Ears, Nose, Throat: Denies: ear pain, throat pain, dental pain, hearing loss, congestion Cardiovascular: Denies: chest pain, palpitations, dyspnea on exertion Respiratory: Denies: cough, dyspnea, wheezes Gastrointestinal: Denies: abdominal pain, nausea, vomiting, diarrhea, constipation Musculoskeletal: Denies: joint swelling, joint pain Neurological: Denies: headache, weakness, numbness, memory loss Psychiatric: Reports: depression, abnormal sleep pattern, suicidal ideation, change in appetite, anhedonia Results - Vital Signs Vital Signs: Temp Pulse Resp BP Pulse Ox 98.6 F 84 18 141/76 96 03/11/18 09:00 03/11/18 09:00 03/11/18 09:00 03/11/18 09:00 03/09/18 10:27 Assessment and Plan (1) Depression Current visit: Yes Status: Acute Plan: Continue hospitalization, Close observation, Suicide Precautions per unit protocol, Encourage participation in unit milieu, Group Therapy, Monitor sleep, Monitor appetite Risks, benefits, side effects, alternatives discussed w/pt: Yes Patient agreeable to treatment: Yes Qualifiers: Depression Type: major depressive disorder Major depression recurrence: recurrent Active/Remission status: currently active Major depression episode severity: severe Psychotic features: without psychotic features Qualified Code(s): F33.2 - Major depressive disorder, recurrent severe without psychotic features (2) Suicidal ideation Current visit: Yes Status: Acute Plan: Continue hospitalization, Close observation, Suicide Precautions per unit protocol, Encourage participation in unit milieu, Group Therapy, Monitor sleep, Monitor appetite Risks, benefits, side effects, alternatives discussed w/pt: Yes Patient agreeable to treatment: Yes Consult Discharge Plan - Plan Referrals: [facility] [Outside] - 03/15/18 2:00 pm (The above appointment is with Steve Pizano for mental health counselling. He will refer you to a psychiatrist.Please arrive 30 minues early: *1:30pm. Bring proof of income, insurance card and photo ID. If you are having a crisis please call or walk in the office during business hours. ) Darren Swift MD [Partnered Physician] - 03/19/18 1:40 pm (The above appointment is with Dr. Jamison BASSETT for primary care and outpatient follow up. ) Psychiatry Exam - Constitutional Vitals: Temp Pulse Resp BP Pulse Ox 98.6 F 84 18 141/76 96 03/11/18 09:00 03/11/18 09:00 03/11/18 09:00 03/11/18 09:00 03/09/18 10:27 General appearance: age & developmentally appropriate, well-groomed, well- nourished - Musculoskeletal Gait: normal Station: relaxed Strength & Tone: normal for patient - Psychiatric Patient Orientation: Yes Person, Yes Time, Yes Place Level of alertness: Alert Behavior: calm, cooperative Psychomotor activity: Normal Eye Contact: Maintains Eye Contact Mood Description: Euthymic/stable Affect description: congruent with mood, full range Speech Volume: Normal Speech pattern: normal rate, normal rhythm, normal tone, fluent, spontaneous Language & Vocabulary: consistent with education Thought Process: Linear, Goal Oriented Thought Content: No Suicidal ideation, No Homicidal ideation, No Overt delusions Perceptual Disturbances: No Auditory hallucinations, No Visual hallucinations Attention Span Ability: Capable of Focused Attention Memory Description: Grossly Intact Patient Reliability: Reliable Historian Fund of knowledge: Yes abstraction ability, Yes aware of current events Intelligence Estimate: Average Judgment: Limited Insight: Partial
[2018-03-11 20:33] VITALS: BP 157/81
[2018-03-11] MEDS: ARIPiprazole 5 MG TABLET PO SCH (21:41)
[2018-03-11] MEDS: hydrOXYzine pamoate 25 MG CAPSULE PO PRN (21:41)
[2018-03-11] MEDS: traZODone 50 MG TABLET PO PRN (21:41)
[2018-03-12] MEDS: Ibuprofen 400 MG TABLET PO PRN (06:47)
--- NOTE | 2018-03-12 07:57 | Discharge Summary ---
Date of Encounter: 03/12/18 Time of Encounter: 07:30 Diagnosis - Discharge Diagnosis (1) Depression Status: Acute Qualifiers: Depression Type: major depressive disorder Major depression recurrence: recurrent Active/Remission status: currently active Major depression episode severity: severe Psychotic features: without psychotic features Qualified Code(s): F33.2 - Major depressive disorder, recurrent severe without psychotic features (2) Suicidal ideation Status: Acute Medications - Discharge Medications Naproxen [Naprosyn] 500 mg PO BID 08/26/16 [History] Tamsulosin [Flomax] 0.4 mg PO DAILY 03/09/18 [History] ARIPiprazole [Abilify] 5 mg PO HS #30 tablet 03/12/18 [Rx] Venlafaxine XR (24 HR) [Effexor Xr] 150 mg PO DAILY #30 cap.er.24h 03/12/18 [Rx] hydrOXYzine pamoate [HydrOXYzine Pamoate] 25 mg PO TID PRN #60 capsule 03/12/18 [Rx] traZODone [TraZODone] 50 mg PO HS PRN #30 tablet 03/12/18 [Rx] 3 Allergy/AdvReac Type Severity Reaction Status Date / Time No Known Allergies Allergy Verified 03/09/18 16:04 Provider Date of admission: 03/09/18 17:12 Primary care physician: PCP NONE Consults: 03/10/18 07:57 Consult to Pastoral Services [CONS] Stat Comment: Discharging clinician: Jason Hernandez Psychiatry Exam - Constitutional Vitals: Temp Pulse Resp BP Pulse Ox 98.7 F 70 18 157/81 96 03/11/18 20:32 03/11/18 20:32 03/11/18 20:32 03/11/18 20:32 03/09/18 10:27 General appearance: age & developmentally appropriate, well-groomed, well- nourished - Musculoskeletal Gait: normal Station: relaxed Strength & Tone: normal for patient - Psychiatric Patient Orientation: Yes Person, Yes Time, Yes Place Level of alertness: Alert Behavior: calm, cooperative Psychomotor activity: Normal Eye Contact: Maintains Eye Contact Mood Description: Euthymic/stable Affect description: congruent with mood, full range Speech Volume: Normal Speech pattern: normal rate, normal rhythm, normal tone, fluent, spontaneous Language & Vocabulary: consistent with education Thought Process: Linear, Goal Oriented Thought Content: No Suicidal ideation, No Homicidal ideation, No Overt delusions Perceptual Disturbances: No Auditory hallucinations, No Visual hallucinations Attention Span Ability: Capable of Focused Attention Memory Description: Grossly Intact Patient Reliability: Reliable Historian Fund of knowledge: Yes abstraction ability, Yes aware of current events Intelligence Estimate: Average Judgment: Limited Insight: Partial Hospital Course Hospital course: Mr. Herrera is a 53 year old male Time spent discussing smoking cessation with patient: 3 to 10 minutes Does patient wish to continue nicotine replacement upon disc: No - Time Spent with Patient Total time spent providing and/or coordinating discharge services: Less than 30 minutes Assessment and Plan - Patient/Caregiver Discharge Instructions Activity: resume usual activities as tolerated Diet: regular diet - Follow up Plan Follow up with: [facility] [Outside] - 03/15/18 2:00 pm (The above appointment is with Steve Pizano for mental health counselling. He will refer you to a psychiatrist.Please arrive 30 minues early: *1:30pm. Bring proof of income, insurance card and photo ID. If you are having a crisis please call or walk in the office during business hours. ) Darren Swift MD [Partnered Physician] - 03/19/18 1:40 pm (The above appointment is with Dr. Jamison BASSETT for primary care and outpatient follow up. ) Overall status at discharge: Stable Disposition: Home, Self-Care Quality - Multiple Antipsychotics Patient discharged on 2 or more antipsychotic medications: No - Justification Documentation of: Other justification (Pt is only on one antipsychotic) Procedures - Procedures Procedures: Medication Management, Crisis Stabilization, Supportive Therapy, Group Therapy, Psychoeducational Therapy
[2018-03-12] MEDS: Venlafaxine XR (24 HR) 150 MG CAP.ER.24H PO SCH (08:10)
[2018-03-12] MEDS: Nicotine 21 MG PATCH.TD24 TD SCH (08:11)
== END 2018-03-12 09:01 | disposition home or self-care (01) | DRG 885 ==
LOC: EMEROO 10:20 → 1ANU 17:12
PROVIDERS: ADMIT General Practice; ATTEND General Practice

== ENCOUNTER 2018-11-07 18:07 | Inpatient (IN) ==
[~2018-11-07 18:07] MED LIST: *HR* Heparin 10,000 UNIT/10 ML VIAL ONE; 0.9 % Sodium Chloride 1,000 ML ONE; Heparin 1,000 UNITS/500 mL 500 ML ONE; ISOVUE-370 200 ML INFUS..BTL ONE; Nitroglycerin 1,000 MCG/10 ML VIAL IV ONE
[2018-11-07] MEDS ORDERED: *HR* Ticagrelor 90 MG TABLET PO ONE (18:09)
[2018-11-07] MEDS ORDERED: *HR* Heparin 5,000 UNIT/ML VIAL IVP ONE (18:09)
[2018-11-07] MEDS ORDERED: 0.9 % Sodium Chloride 1,000 ML ONE (18:10)
[2018-11-07] MEDS ORDERED: *HR* Heparin 5,000 UNIT/ML VIAL ONE (18:10)
[2018-11-07] MEDS ORDERED: Aspirin 81 MG TAB.CHEW ONE (18:10)
[2018-11-07] MEDS ORDERED: *HR* Ticagrelor 90 MG TABLET ONE (18:10)
--- NOTE | 2018-11-07 18:12 | Emergency Department Note ---
Disposition Clinical Impression: STEMI (ST elevation myocardial infarction) Disposition: Admitted As Inpatient Condition: Critical Forms: ED Satisfaction Letter General Adult HPI - General Chief complaint: ED Chest Pain Stated complaint: stemi Time Seen by Provider: 11/07/18 18:09 - Related Data Home Medications Medication Instructions Recorded Confirmed RX: Naproxen [Naprosyn] 500 mg PO BID 08/26/16 03/09/18 RX: Tamsulosin [Flomax] 0.4 mg PO DAILY 03/09/18 03/09/18 Previous Rx's Medication Instructions Recorded RX: Venlafaxine XR (24 HR) 150 mg PO DAILY #30 cap.er.24h 03/12/18 [Effexor Xr] RX: hydrOXYzine pamoate 25 mg PO TID PRN #60 capsule 03/12/18 [HydrOXYzine Pamoate] RX: traZODone [TraZODone] 50 mg PO HS PRN #30 tablet 03/12/18 Allergies Allergy/AdvReac Type Severity Reaction Status Date / Time No Known Allergies Allergy Verified 03/09/18 16:04 Past Medical History - Past Medical History Medical history: Reports: other Surgical history: Reports: tonsilectomy Psychiatric history: Reports: depression - Social History Smoking Status: Current every day smoker Smokeless Tobacco Status: No Alcohol use: Reports: none Drug use: Reports: marijuana Course Vital Signs Temperature 98.4 F 11/07/18 18:08 Pulse Rate 81 11/07/18 18:08 Respiratory Rate 18 11/07/18 18:08 Blood Pressure 156/79 11/07/18 18:08 O2 Sat by Pulse Oximetry 100 11/07/18 18:08 Temperature 98.4 F 11/07/18 18:08 Pulse Rate 81 11/07/18 18:08 Respiratory Rate 18 11/07/18 18:08 Blood Pressure 156/79 11/07/18 18:08 O2 Sat by Pulse Oximetry 100 11/07/18 18:08 Oxygen Delivery Oxygen Delivery Room Air Medical Decision Making - Lab Data Result diagrams: 11/07/18 18:18 Lab Results 11/07/18 11/07/18 Range/Units 18:18 18:18 WBC 20.2 H (4.3-11.1) K/mcL RBC 5.55 H (4.19-5.50) M/mcL Hgb 15.8 (12.9-16.9) g/dL Hct 49.5 (37.5-50.1) % MCV 89.2 (83.0-100.0) fL MCH 28.5 (28.0-33.3) pg MCHC 31.9 (31.6-35.5) g/dL RDW 16.3 H (11.5-14.5) % Plt Count 371 (140-400) K/mcL MPV 8.4 L (9.4-12.4) fL Immature Gran % 0.8 (0-4) % Seg Neutrophils % 74.3 % Lymphocytes % 17.9 % Monocytes % 5.4 % Eosinophils % 1.2 % Basophils % 0.4 % Neutrophils # 15.0 H (1.6-8.9) K/mcL Lymphocytes # 3.6 (0.6-4.6) K/mcL Monocytes # 1.1 (0.0-1.3) K/mcL Eosinophils # 0.3 (0.0-0.6) K/mcL Basophils # 0.1 (0.0-0.2) K/mcL PT 10.5 (9.4-12.1) Seconds INR 0.9 Attestation Statement - Attestation Attestation: I examined this patient and my medical decision-making was reviewed with the Resident Physician. I agree with the documented findings, disposition and treatment plan as described except to the extent set forth below. [id number] time provided Patient arrives complaining of chest pain that has now resolved. I did review the ECG prior to his arrival that was transmitted by the EMS personnel which showed a septal ST segment elevation pattern. There was ST segment elevation in leads V1, V2, V3. STEMI alert was activated prehospital. Upon arrival the patient does not appear in any acute distress.
--- NOTE | 2018-11-07 18:22 | Emergency Department Note ---
Disposition Clinical Impression: STEMI (ST elevation myocardial infarction) Qualifiers: Involved coronary artery: unspecified coronary artery Qualified Code(s): I21.3 - ST elevation (STEMI) myocardial infarction of unspecified site Disposition: Admitted As Inpatient Condition: Critical Forms: ED Satisfaction Letter Chest Pain HPI - General Chief Complaint: ED Chest Pain Stated Complaint: stemi Time Seen by Provider: 11/07/18 18:09 Source: patient, EMS Mode of arrival: EMS Limitations: no limitations Vital Signs Reviewed: Yes Nursing Notes Reviewed: Yes - History of Present Illness HPI Narrative: Patient is a 53-year-old male with no significant past medical history presenting with chief complaint of left-sided crushing sharp chest pain that started at 1600 while the patient was sitting at his computer desk. Patient states pain started suddenly and was radiating down his left arm. He complains of nausea and diaphoresis associated with the pain. He states he called EMS. Approximately 20 minutes later, he states the pain resolved on its own however he remained diaphoretic. EKG was initially obtained by EMS that showed anterior septal STEMI. Patient received 324 mg of aspirin and 1 nitroglycerin. He has not had recurrence of the chest pain. Patient states he has had intermittent episodes of left-sided chest pain that lasts for a couple of minutes with exertion in the past couple months. He denies a history of coronary artery disease, coronary catheterization, diabetes, hypertension. Severity scale (1-10): 0 - Related Data Home Medications Medication Instructions Recorded Confirmed Naproxen [Naprosyn] 500 mg PO BID 08/26/16 03/09/18 Tamsulosin [Flomax] 0.4 mg PO DAILY 03/09/18 03/09/18 Previous Rx's Medication Instructions Recorded Venlafaxine XR (24 HR) [Effexor Xr] 150 mg PO DAILY #30 cap.er.24h 03/12/18 hydrOXYzine pamoate [HydrOXYzine 25 mg PO TID PRN #60 capsule 03/12/18 Pamoate] traZODone [TraZODone] 50 mg PO HS PRN #30 tablet 03/12/18 Allergies Allergy/AdvReac Type Severity Reaction Status Date / Time No Known Allergies Allergy Verified 03/09/18 16:04 All systems ED: reviewed and negative except as stated. Review of Systems: As Per HPI Constitutional: Denies: fever, chills Cardiovascular: Reports: chest pain, other (diaphoresis) Respiratory: Denies: cough, dyspnea Gastrointestinal: Reports: nausea. Denies: abdominal pain, vomiting Neurological: Denies: headache, weakness Chest Pain PMH - Past Medical History Medical history: Reports: other Surgical history: Reports: tonsilectomy Psychiatric history: Reports: depression - Social History Smoking Status: Current every day smoker Alcohol use: Reports: none Drug use: Reports: marijuana Physical Exam - General Limitations: no limitations General appearance: alert, in no apparent distress - Head Head exam: atraumatic, normocephalic - Eye Eye exam: Present: normal appearance, EOMI - ENT ENT exam: normal exam, normal oropharynx, mucous membranes moist - Neck Neck exam: Present: normal inspection, trachea midline - Chest Chest inspection: Present: normal inspection, symmetric chest wall rise. Absent: tenderness - Respiratory Respiratory exam: Present: normal lung sounds bilaterally. Absent: respiratory distress, wheezes - Cardiovascular Cardiovascular exam: Present: regular rate, normal rhythm, normal heart sounds, other (Bilateral radial pulses equal) - Abdominal Exam Abdominal exam: Present: soft, Non-Tender. Absent: distention - Extremities Exam Extremities exam: Present: normal inspection, normal capillary refill. Absent: calf tenderness - Neurological Exam Neurological exam: Present: alert, oriented X3 - Psychiatric Psychiatric exam: Present: normal affect, normal mood - Skin Skin exam: Present: warm, dry, intact. Absent: diaphoresis, pallor Course Vital Signs Temperature 98.4 F 11/07/18 18:08 Pulse Rate 81 11/07/18 18:08 Respiratory Rate 18 11/07/18 18:08 Blood Pressure 156/79 11/07/18 18:08 O2 Sat by Pulse Oximetry 100 11/07/18 18:08 Temperature 98.4 F 11/07/18 18:08 Pulse Rate 81 11/07/18 18:08 Respiratory Rate 18 11/07/18 18:08 Blood Pressure 156/79 11/07/18 18:08 O2 Sat by Pulse Oximetry 100 11/07/18 18:08 Oxygen Delivery Oxygen Delivery Room Air Chest Pain - MDM Narrative Medical decision making narrative: Initial EKG was obtained by EMS at approximately 1721 they started their transmit to our ER. There is ST elevation in V2, V3, V4 consistent with an anteroseptal STEMI and acute infarction. Patient received 324 mg of aspirin. He received 1 nitroglycerin which resolved his chest pain. Repeat EKG was obtained approximately 30 minutes later that showed ST elevation in V1 and V2 and V3 that is improving, however still elevated. Alert team was notified. Dr. Mackay, interventional cardiology was also notified about the patient and EKGs were transmitted to her. The catheter lab team was notified as we called a STEMI alert. On arrival, the patient's vitals are stable and he denies chest pain. He is alert and oriented. A second peripheral IV access was obtained. Lab work was obtained. Patient will be started on heparin and Brilinta. The catheterization team presented at bedside shortly after the patient's arrival. Repeat EKG obtained at our facility at 1811 shows sinus rhythm with heart rate 79. NH interval 143. QRS duration 100. QTc 461. There is T-wave inversion in V1. T waves in V2 and V3. Patient taken to the [facility] for intervention at 18:15 in stable condition.
[2018-11-07 18:28] LABS: Basophils # 0.1 K/mcL (0.0-0.2); Basophils % 0.4 %; Eosinophils # 0.3 K/mcL (0.0-0.6); Eosinophils % 1.2 %; Hematocrit 49.5 % (37.5-50.1); Hemoglobin 15.8 g/dL (12.9-16.9); Immature Granulocytes % 0.8 % (0-4); Lymphocytes # 3.6 K/mcL (0.6-4.6); Lymphocytes % 17.9 %; Mean Corpuscular HGB Conc 31.9 g/dL (31.6-35.5); Mean Corpuscular Hemoglobin 28.5 pg (28.0-33.3); Mean Corpuscular Volume 89.2 fL (83.0-100.0); Mean Platelet Volume 8.4 fL (9.4-12.4); Monocytes # 1.1 K/mcL (0.0-1.3); Monocytes % 5.4 %; Platelet Count 371 K/mcL (140-400); Red Blood Count 5.55 M/mcL (4.19-5.50); Red Cell Distribution Width 16.3 % (11.5-14.5); Segmented Neutrophils % 74.3 %
[2018-11-07] MEDS ORDERED: *HR* Midazolam HCl 5 MG/5 ML VIAL IVP ONE (18:29)
[2018-11-07] MEDS ORDERED: *HR* FentaNYL (PF) 250 MCG/5 ML VIAL ONE (18:29)
[2018-11-07 18:36] LABS: INR 0.9; Prothrombin Time 10.5 Seconds (9.4-12.1)
[2018-11-07 18:38] LABS: Activated Partial Thrombo Time 28.9 Seconds (26.0-36.0)
[2018-11-07] MEDS ORDERED: ISOVUE-370 200 ML INFUS..BTL ONE (18:41)
[2018-11-07] MEDS ORDERED: *HR* Bivalirudin 250 MG VIAL IVC ONE ×2 (18:41→18:46)
[2018-11-07 18:50] LABS: Alanine Aminotransferase 29 Units/L (7-52); Albumin 3.7 g/dL (3.5-5.7); Albumin/Globulin Ratio 1.1 (1.1-2.2); Alkaline Phosphatase 83 Units/L (34-104); Aspartate Amino Transferase 20 Units/L (13-39); BUN/Creatinine Ratio 9 (6-26); Bilirubin,Total 0.3 mg/dL (0.3-1.0); Blood Urea Nitrogen 7 mg/dL (6-20); Calcium 8.8 mg/dL (8.6-10.3); Carbon Dioxide 26 mEq/L (23-29); Chloride 102 mEq/L (98-107); Globulin 3.3 g/dL (2.4-3.5); Glucose 117 mg/dL (70-105); Osmolality,Calculated 283 (280-300); Potassium 3.8 mEq/L (3.5-5.1); Sodium 137 mEq/L (136-145); eGFR For Non-African Americans > 60 (> 60)
[2018-11-07] MEDS ORDERED: Nitroglycerin 0.4 MG TAB.SUBL SL PRN (19:09)
[2018-11-07] MEDS ORDERED: 0.9 % Sodium Chloride 1,000 ML IVC SCH (19:15)
--- NOTE | 2018-11-07 19:19 | Cardiology History & Physical ---
Date of Encounter: 11/07/18 Time of Encounter: 18:20 Assessment and Plan (1) STEMI (ST elevation myocardial infarction) Current Visit: Yes Status: Acute Pt currently experiencing acute anteroseptal CO. Will proceed emergently to cardiac catheterization lab for emergency LHC and possible PCI. All risks/benefits discussed with patient by me. Agreeable to proceed. The assessment and plan as outlined above was discussed with the patient and/or family members who expressed understanding and agreement. All questions were answered. Qualifiers: Involved coronary artery: unspecified coronary artery Qualified Code(s): I21.3 - ST elevation (STEMI) myocardial infarction of unspecified site (2) Tobacco use Current Visit: Yes Status: Chronic Smoking cessation. History of Present Illness Chief complaint: chest pain HPI: Mr. Herrera is a 53 year old male with hx tobacco use presents to [facility] via EMS for evaluation of CP. Pt states was in baseline state of health until approximately 1600 this evening. While sitting at computer desk at rest, had acute onset of CP radiating to arms. Associated with nausea, diaphoresis. Contacted EMS who gave him SL NTG that relieved discomfort. Initial EKG in EMS significant for acute anteroseptal CO. Pt denies prior CP. Denies hx of HTN, DM, hyperlipidemia. Does admit to tobacco use. Denies prior cardiac history, testing. 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 (only pinky toe, some skin folding) - Social History Smoking Status: Current every day smoker Smokeless Tobacco Status: No Alcohol use: none Drug use: marijuana - Family History Mother Hx Family Cardiac Disorders: No Father Hx Family Cardiac Disorders: No Medications and Allergies Naproxen [Naprosyn] 500 mg PO BID 08/26/16 [History] Tamsulosin [Flomax] 0.4 mg PO DAILY 03/09/18 [History] Venlafaxine XR (24 HR) [Effexor Xr] 150 mg PO DAILY #30 cap.er.24h 03/12/18 [Rx] hydrOXYzine pamoate [HydrOXYzine Pamoate] 25 mg PO TID PRN #60 capsule 03/12/18 [Rx] traZODone [TraZODone] 50 mg PO HS PRN #30 tablet 03/12/18 [Rx] Allergy/AdvReac Type Severity Reaction Status Date / Time No Known Allergies Allergy Verified 03/09/18 16:04 ROS unobtainable: other (emergency) All Systems Review: The remainder of the systems were reviewed and are negative - Cardiovascular Cardiovascular: as per HPI Physical Examination Vital Signs, Last 4 Hours Temp Pulse Resp BP Pulse Ox 11/07/18 18:08 98.4 F 81 18 156/79 100 General: Conversant, Other (appears mildly uncomfortable) HEENT: Atraumatic, Normocephaly, Mucus Membranes Moist Neck: No JVD, Normal carotid pulses Cardiac: Reg Rate and Rhythm, Normal S1 and S2, No Murmur Lungs: Normal Breath Sounds, No Wheeze, Rales, Rhonchi Neuro: Alert and responsive, No focal deficits noted Abdomen: Soft, Non-Tender Skin: No rashes noted on visualized skin Musculoskeletal: No Chest Wall Tenderness Extremities: No Clubbing, No Cyanosis, No Edema, Normal Pulses, Other (s/p R foot amputation) Results 11/07/18 18:18 11/07/18 18:18 Lab Results 11/07/18 11/07/18 11/07/18 18:18 18:18 18:18 WBC 20.2 H Hgb 15.8 Hct 49.5 Plt Count 371 INR 0.9 APTT 28.9 Sodium 137 Potassium 3.8 Chloride 102 Carbon Dioxide 26 BUN 7 Creatinine 0.80 Glucose 117 H Calcium 8.8 Magnesium 2.0 Total Bilirubin 0.3 AST 20 ALT 29 Alkaline Phosphatase 83 - VTE Reasons for not Prescribing Prophylaxis: Not indicated-Anticoagulated or INR therapeutic
--- NOTE | 2018-11-07 19:22 | Invasive Diagnostic Lab Proc ---
Name: Juanito Herrera Date of Study: 11/07/2018 Date: 1965 Ht: 71.0in Medical Record#: [id number] Age: 53 Wt: 257.94lb Gender: Male BSA: 2.35 Order #: [id number] BMI: 35.99 Physicians Procedure Physician: Melanie Mackay MD, FACC Referring MD: Referring MD: Staff Name Position Time In ReneesohanNancy hope RN Monitor 06:30 PM Demterius East RN Signal Processing Engineer 06:30 PM Damian Maguire RT (R) Scrub 06:30 PM Indications Indication STEMI Procedures Performed Procedure PRQ CARD REVASC [place] 1 VSL L HRT ARTERY/VENTRICLE ANGIO Pre-Procedure Checklist Pt not NPO for procedure and MD aware. Plan of Care Patient will tolerate the procedure without complications. Adequate level of comfort will be maintained. Hemodynamics will remain stable Patient will recover from procedure without complications. Respiratory function will be maintained. Cardiac rhythm will remain stable. Patient temperature will be maintained. Patient and/or family have verbalized understanding of the procedure. Patient Education Intravenous Access Time IV Size Location DC'd Fluid/Drip Rate Units RN 06:59 PM 20g 1 10/01" Patent On Arrival Rt Antecubital Allergies No Known Allergies NKDA Vital Signs Time BP (mmHg) HR (bpm) O2 Sat. RR (bpm) LOC 06:30 PM / % 5 = Fully awake and oriented or at pre-proc level 06:30 PM / % 4 = Oriented but drowsy 06:45 PM / % 4 = Oriented but drowsy 06:29 PM 143 / 74 80 100 % 15 06:34 PM 125 / 75 105 97 % 55 06:39 PM 126 / 70 77 95 % 25 06:45 PM 153 / 92 82 96 % 41 06:49 PM 134 / 70 83 91 % 17 06:54 PM 131 / 80 63 93 % 18 06:59 PM 119 / 64 86 94 % 13 Procedural Medications Time Medication Dose Units Method Given By 06:32 PM Oxygen 2 L/min nasal cannula Demetrius East RN 06:32 PM Versed 2 mg Intravenous Demetrius East RN 06:32 PM Fentanyl 50 mcg Intravenous Demetrius East RN 06:33 PM Lidocaine 2% 20 ml Subcutaneous Melanie Mackay MD, FACC 06:38 PM Angiomax 0.75mg/kg bolus: 17 ml Intravenous Demetrius East RN 06:39 PM Angiomax 1.75mg/kg/hr: 40 ml/hr Intravenous Demetrius East RN 06:45 PM Fentanyl 50 mcg Intravenous Demetrius East RN 06:46 PM Nitroglycerin 200 mcg Intracoronary Melanie Mackay MD, [facility] 06:47 PM Nitroglycerin 200 mcg Intracoronary Melanie Mackay MD, [facility] 06:55 PM Nitroglycerin 200 mcg Intracoronary Melanie Mackay MD, [facility] 06:56 PM Nitroglycerin 200 mcg Intracoronary Melanie Mackay MD, [facility] Nichole Score Preprocedure Postprocedure Activity 2- Moves 4 extremities sustained head lift Activity 2- Moves 4 extremities sustained head lift Circulation 2- SBP +/= 20 points of pre-anesthetic level Circulation 2- SBP +/= 20 points of pre-anesthetic level Consciousness 2- Awake and alert oriented x 3 Consciousness 2- Awake and alert oriented x 3 O2 Saturation 2- Able to maintain O2 satruation of 92% on room air O2 Saturation 2- Able to maintain O2 satruation of 92% on room air Respiratory 2- Able to deep breathe and cough well Respiratory 2- Able to deep breathe and cough well Total Score 10 Total Score 10 Contrast Agent: Isovue Diagnostic Contrast: 226 ml Total Contrast: 226 ml Fluoro Dose: 60419 mGy Procedure Log Time Note Enter By 06:21 PM Pt arrived to clinical lab assistant 2 at 18:21 [facility] 06:28 PM CathStat 06:28 PM Vitals capture started with the following parameters, Patient=Adult, Interval=5 min, Initial Ssghlhwe=276 mmHg, Deflation Rate=5 mmHg, Cuff placed on Right Arm 06:29 PM HR=80 bpm, LTLF=657/74 mmhg, YlF7=617.0 %, Resp=15 B/min, EtCO2=34 mmHg 06:30 PM Nancy Willis RN Position: Monitor Time in: 18:30 [facility] 06:30 PM Demetrius East RN Position: Signal Processing Engineer Time in: 18:30 [facility] 06:30 PM Damian Maguire RT (R) Position: Scrub Time in: 18:30 [facility] 06:30 PM Hair removed from procedure site in procedure lab using clippers. Bilateral groin prepped with Chloraprep by Nancy Willis RN, then patient was draped. Skin intact. [facility] 06:30 PM Meet and greet completed [facility] 06:30 PM Sign in performed according to hospital policy. Informed consent was obtained. [facility] 06:30 PM Procedure start 18:30 06:30 PM Time: 18:30 Patient comfortable and pain free: Yes [facility] 06:30 PM Time: 18:30LOC: 5 = Fully awake and oriented or at pre-proc level [facility] 06:30 PM Clinical Presentation: STEMI or equivalent 06:31 PM Pressure channel 1 zeroed. 06:32 PM Critical cardiac patient with acute [place] was brought emergently to the cardiac production laborer for immediate coronary angiography and intervention if clinically indicated. [facility] 06:32 PM Time out was performed according to hospital policy. Conscious sedation and anesthesia was achieved (see medication log with in this report above) [facility] 06:32 PM Time: 18:32 Oxygen on at 2 L/min per nasal cannula by Demetrius East RN [facility] 06:32 PM Time: 18:32 Versed 2 mg Intravenous Given by Demetrius East RN [facility] 06:32 PM Time: 18:32 Fentanyl 50 mcg Intravenous Given by Demetrius East RN [facility] 06:32 PM 180mg brilinta crushed and 4,000 units of heparin IV administered in ED MANAGER ANALYTICAL 06:33 PM Time: 18:33 20 ml Lidocaine 2% to right groin Subcutaneous Given by Melanie Mackay MD, [facility] 06:33 PM Recorded ECG: HR=88 Condition=Condition 1 06:33 PM Access obtained by percutaneous puncture. 6Fr 10cm Terumo Alvaton sheath placed in right Femoral artery. [id number] [facility] 06:33 PM 0.035 145cm Navilyst 3mmJ wire [id number] [facility] 06:33 PM 5Fr FL 4 catheter inserted over the wire [facility] 06:34 PM PX=096 bpm, KSKH=678/75 mmhg, SpO2=97.0 %, Resp=55 B/min 06:34 PM wire removed [facility] 06:34 PM Recorded Pressure: Ao, HR=38, Condition=Condition 1 (Aorta) Ao 118/77/94 06:34 PM LCA angiography performed in multiple views. 06:35 PM Catheter removed 06:35 PM 5Fr FR 4 catheter inserted over the wire [facility] 06:37 PM RCA angiography performed in multiple views. 06:37 PM Catheter removed 06:38 PM Inflation device was opened. 06:38 PM 6Fr XB LAD 3.5 Cordis guide catheter was used to cannulate the PCI vessel successfully. reused? No 06:38 PM .014 PT Graphix 182cm guide wire across target lesion- successful. reused? No 06:39 PM Time: 18:38 Angiomax 0.75mg/kg bolus: 17 ml Intravenous Given by Demetrius East RN 06:39 PM Time: 18:39 Angiomax 1.75mg/kg/hr: 40 ml/hr Intravenous Given by Demetrius East RN Long pump 06:39 PM HR=77 bpm, LYPN=886/70 mmhg, SpO2=95.0 %, Resp=25 B/min, EtCO2=23 mmHg 06:39 PM Lesion found in Proximal LAD. Pre Stenosis: 99 Pre JAVY Flow: 2: Partial Flow/Perfusion (> 1 but < 3) 06:39 PM Proximal Left Anterior Descending Coronary Artery with 99% stenosis. If graft is supplying this territory, 0 % stenosis. 06:41 PM 2.0 mm x 15 mm Emerge Monorail balloon across target lesion- successful. reused? No 06:42 PM Balloon inflated @ 8 joe for 15. seconds 06:42 PM Balloon inflated @ 8 joe for 15 seconds ou 06:43 PM Balloon inflated @ 6 joe for 15 seconds ou 06:44 PM Balloon inflated @ 10 joe for 15 seconds tsoumm 06:44 PM Balloon inflated @ 10 joe for 15 seconds ou 06:44 PM Recorded Pressure: Ao, HR=79, Condition=Condition 1 (Aorta) Ao 140/75/102 06:44 PM Balloon inflated @ 10 joe for 15 seconds ou 06:45 PM HR=82 bpm, XJFX=571/92 mmhg, SpO2=96.0 %, Resp=41 B/min, EtCO2=29 mmHg 06:45 PM Time: 18:45 Fentanyl 50 mcg Intravenous Given by Demetrius East RN [facility] 06:45 PM Time: 18:30LOC: 4 = Oriented but drowsy [facility] 06:45 PM Time: 18:30 Patient comfortable and pain free: Yes [facility] 06:46 PM Balloon inflated @ 12 jo[address] for [address] [facility] 06:46 PM Time: 18:46 Nitroglycerin 200 mcg Intracoronary Given by Melanie Mackay MD, [facility] 06:47 PM Balloon catheter removed intact. 06:47 PM Time: 18:47 Nitroglycerin 200 mcg Intracoronary Given by Melanie Mackay MD, [facility] 06:47 PM Coronary Dominance: right [facility] 06:49 PM HR=83 bpm, RRLI=111/70 mmhg, SpO2=91.0 %, Resp=17 B/min, EtCO2=27 mmHg 06:52 PM 2.75mm x 28mm Promus Premier Rx drug-eluting stent across target lesion- successful Lot #[id number] 06:54 PM Stent deployed @ [address] [facility] 06:54 PM HR=63 bpm, LHFI=900/80 mmhg, SpO2=93.0 %, Resp=18 B/min 06:55 PM Time: 18:55 Nitroglycerin 200 mcg Intracoronary Given by Melanie Mackay MD, [facility] 06:56 PM Time: 18:56 Nitroglycerin 200 mcg Intracoronary Given by Melanie Mackay MD, [facility] 06:57 PM Stent delivery system removed intact. [facility] 06:58 PM Guide wire removed intact. [facility] 06:58 PM Guide catheter removed intact. [facility] 06:58 PM 5Fr Pigtail catheter inserted over the wire [facility] 06:58 PM Catheter crossed the aortic valve and was selectively placed in the left ventricle. Pressures recorded on pullback for left heart catheterization. [facility] 06:59 PM HR=86 bpm, WYJE=919/64 mmhg, SpO2=94.0 %, Resp=13 B/min 06:59 PM Pressure channel 1 zero failed. 06:59 PM Pressure channel 1 zeroed. 07:00 PM Recorded Pressure: LV, HR=85, Condition=Condition 1 (Left Ventricle) LV 144/-2/15 07:00 PM Bolus angiogram of left Ventricle complete: 8 ml/sec for a total of 24 mls tsoummers 07:00 PM Recorded Pressure: LV, Ao, HR=84, Condition=Condition 1 (Left Ventricle) LV 102/24/32, (Aorta) Ao 102/70/85 07:00 PM Time: 18:45 Patient comfortable and pain free: Yes tsoummers 07:00 PM Time: 18:45LOC: 4 = Oriented but drowsy tsoummers 07:01 PM Catheter removed tsoummers 07:01 PM Bolus angiogram of right Femoral complete: 2 ml/sec for a total of 4 mls tsoummers 07:02 PM Procedure completed at 19:02 11/07/2018 [email or web address] 07:02 PM Did you address JAVY flow and Dominance? Yes tsoummers 07:02 PM Sign out completed: Radiation Dose 1239.83 mGy, 95890 cGy/cm2 Fluoro Time: 7.2 Isovue 370 - 200ml contrast 226 ml given by Melanie Mackay MD, [facility]. Complications: None. The patient was discharged out of the production laborer in stable condition. Cardiac Rehab Consult needed: YesConfirmed administered medications: Yes tsoummers 07:02 PM Isovue 370 - 200ml,2 Bottle(s) used. tsoummers 07:03 PM Sheath left in place to be pulled on floor/holding area tsoummers 07:06 PM Estimated Blood Loss: less than 50cc tsoummers 07:06 PM Post ECG NSR tsoummers 07:06 PM Post Blood Pressure 127/68 tsoummers 07:06 PM Information taught Cardiac Cath and PCI tsoummers 07:06 PM Education needs Procedure, Plan of Care, Disease Process, and Responsibilities of Patient in Care tsoummers 07:06 PM Learning barriers :None tsoummers 07:06 PM Education Methods Verbal tsoummers 07:06 PM Education evaluation Able to repeat information tsoummers 07:06 PM Site status No bleeding/hematoma - Rt Groin as reported by Damian Maguire RT (R) at 19:06 [email or web address] 07:06 PM Opsite applied tsoummers 07:07 PM Plavix, Effient or Brilinta given Yes in ED tsoummers 07:07 PM Delay to floor No tsoummers 07:07 PM no family present tsoummers 07:11 PM Report given to Beth STILES Pt taken to ICU Room #3. 19:10 tsoummers 07:11 PM Lesion found in Proximal RCA. Pre Stenosis: 30 Pre JAVY Flow: tsoummers 07:11 PM Lesion found in Mid RCA. Pre Stenosis: 40 Pre JAVY Flow: tsoummers 07:11 PM Lesion found in Distal RCA. Pre Stenosis: 30 Pre JAVY Flow: tsoummers 07:11 PM Lesion found in Distal LMCA. Pre Stenosis: 30 Pre JAVY Flow: tsoummers 07:11 PM Lesion found in 1st Diagonal. Pre Stenosis: 50 Pre JAVY Flow: tsoummers 07:12 PM Lesion found in Proximal Circumflex. Pre Stenosis: 40 Pre JAVY Flow: tsoummers 07:12 PM Lesion found in Ramus. Pre Stenosis: 30 Pre JAVY Flow: tsoummers 07:12 PM Left Main Coronary Artery with 30% stenosis tsoummers 07:12 PM Mid/Distal Left Anterior Descending Coronary Artery and diagonal branches with 50% stenosis. If graft is supplying this area, 0 % stenosis tsoummers 07:12 PM Circumflex, Obtuse Marginal, Left Posterior Descending, and Left Posterolateral Coronary Arteries with 40 % stenosis. If graft is supplying this area, 0 % stenosis tsoummers 07:12 PM Right Coronary, Right Posterior Descending Arteries with Right Posterolateral and Acute Marginal branches with 40 % stenosis. If graft is supplying this area, 0 % stenosis tsoummers 07:12 PM Ramus with 30% stenosis. If graft is supplying this area, 0 % stenosis tsoummers 07:16 PM Patient out of room: 19:16 tsoummers Complications Complication None Hemodynamics Pressures Site Systolic/A Wave Diastolic/V Wave Mean AO 118 77 94 AO 140 75 102 LV 144 -2 15 LV 102 24 32 AO 102 70 85 Post Procedure Information Blood Pressure: 127/68 mmHg Rhythm: NSR Post procedural instructions were given Site Checks Time Location Status Staff Sheath In? Note 07:06 PM Rt Groin No bleeding/hematoma Damian Maguire RT (R) Pulses Updated by Nancy Willis RN on 11/07/2018 7:16:29 PM electronically signed on 11/07/2018 7:17:03 PM with status of Final
[2018-11-07 19:32] LABS: Troponin I 0.13 ng/mL (< 0.04)
[2018-11-07] MEDS: Nicotine 14 MG PATCH.TD24 TD SCH (21:00)
[2018-11-08] MEDS: *HR* Morphine 2 MG/ML SYRINGE IVP PRN ×2 (02:05→09:20)
[2018-11-08] MEDS ORDERED: Perflutren Lipid Microsphere 1.3 ML in 0.9 % Sodium Chloride 8.7 ML IVP ONE (07:03)
[2018-11-08] MEDS ORDERED: hydrOXYzine pamoate 25 MG CAPSULE PO PRN (08:20)
[2018-11-08] MEDS ORDERED: traZODone 50 MG TABLET PO PRN (08:20)
--- NOTE | 2018-11-08 08:55 | Cardiology Progress Note ---
Date of Encounter: 11/08/18 Time of Encounter: 08:10 Assessment and Plan (1) STEMI (ST elevation myocardial infarction) Current Visit: Yes Status: Acute Pt presented with acute anteroseptal OR. [facility] 11/07/18: s/p successful PTCA/ to pLAD; otherwise mild-moderate non- obstructive CAD--30% dLMCA, 50% 1st diagonal, 40% pLCx, 30% ramus, 30% pRCA, 40% mRCA, 30% dRCA; EF 65% per LV gram. TTE: pending. No recurrent chest pain overnight. Vital stable. Developed hematoma at [facility] site overnight, resolved with manual pressure--no residual hematoma noted upon exam this AM. Distal pulses present. Appears anxious upon exam, reports may leave AMA, emotional support provided, risks discussed including SCD, AMI. Pt. verbalized understanding of associated risks. Continue DAPT (asa + plavix) for a minimum of 1 year following . Continue statin, BB. Cardiac rehab. Recommend ICU monitoring today, anticipate step down on 11/09/18. VTE prophylaxis: Heparin 5000 units SC BID Qualifiers: Involved coronary artery: LAD coronary artery Qualified Code(s): I21.02 - ST elevation (STEMI) myocardial infarction involving left anterior descending coronary artery (2) Tobacco use Current Visit: Yes Status: Chronic Smoking cessation. NTG patch ordered. (3) Chronic back pain Current Visit: Yes Status: Acute Patient describes chronic back pain, states takes scheduled Vicodin at home. He is unsure of dosing/frequency. Currently not listed on home medications, OARRS report pending (per ICU pharmacist). Anticipate resuming once clarified. Qualifiers: Back pain location: low back pain Back pain laterality: unspecified Sciatica presence: unspecified whether sciatica present Qualified Code(s): M54.5 - Low back pain; G89.29 - Other chronic pain Discussion w patient/family: The assessment and plan as outlined above was discussed with the patient and/or family members who expressed understanding and agreement. All questions were answered. Thank you for involving us in the care of your patient. Please call with any questions. The patient will be discussed and reviewed with Dr. Pemberton; changes to be made accordingly. Subjective Principal diagnosis: STEMI Interval history: Seen and examined. Appears anxious this AM; reports has issues with his feet and can no longer be in the prone position. No recurrent chest pain overnight. Per bedside RN, developed hematoma overnight--resolved with manual pressure, no issues this AM upon exam. 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 No hematoma or bleeding present. Mild amount of ecchymosis noted at site. Results 11/07/18 18:18 11/07/18 18:18 Lab Results 11/07/18 11/07/18 11/07/18 18:18 18:18 18:18 WBC 20.2 H Hgb 15.8 Hct 49.5 Plt Count 371 INR 0.9 APTT 28.9 Sodium 137 Potassium 3.8 Chloride 102 Carbon Dioxide 26 BUN 7 Creatinine 0.80 Glucose 117 H Calcium 8.8 Magnesium 2.0 Total Bilirubin 0.3 AST 20 ALT 29 Alkaline Phosphatase 83 Troponin I 0.13 H* Active Medications Acetaminophen (Tylenol) 500 mg PO Q6HR PRN PRN Reason: Mild Pain Stop: 05/09/19 19:10 Last Admin: 11/08/18 05:15 Dose: 500 mg Aspirin (Aspirin) 81 mg PO DAILY JC Stop: 05/10/19 09:01 Atorvastatin Calcium (Lipitor) 80 mg PO HS JC Stop: 05/09/19 21:01 Last Admin: 11/07/18 21:00 Dose: 80 mg Clopidogrel Bisulfate (Plavix) 75 mg PO DAILY JC Stop: 05/10/19 09:01 Hydroxyzine Pamoate (Hydroxyzine Pamoate) 25 mg PO TID PRN PRN Reason: Anxiety Lisinopril (Zestril) 2.5 mg PO DAILY JC Stop: 05/10/19 09:01 Metoprolol Tartrate (Lopressor) 25 mg PO BID [facility] Stop: 05/09/19 21:01 Last Admin: 11/07/18 21:00 Dose: 25 mg Morphine Sulfate (Morphine Sulfate) 2 mg IVP Q2H PRN; Protocol PRN Reason: chest pain Stop: 05/10/19 02:00 Last Admin: 11/08/18 02:05 Dose: 2 mg Nicotine (Nicoderm) 14 mg TD DAILY [facility]; Protocol Stop: 05/09/19 20:31 Last Admin: 11/07/18 21:00 Dose: 14 mg Nitroglycerin (Nitroglycerin) 0.4 mg SL Q5MIN PRN PRN Reason: Chest Pain Stop: 05/09/19 19:10 Tamsulosin HCl (Flomax) 0.4 mg PO DAILY [facility]; Protocol Stop: 05/10/19 09:01 Trazodone HCl (Trazodone) 50 mg PO HS PRN PRN Reason: Insomnia Stop: 05/10/19 08:21 Venlafaxine HCl (Effexor) 100 mg PO BID [facility] Stop: 05/10/19 09:01 - Imaging and Cardiology Echo: pending Cardiac cath: report reviewed Other Results: 12 hour tele: avg HR=69 SR. No events noted. - EKG Interpretation EKG results cardiology: personally reviewed - VTE Reasons for not Prescribing Prophylaxis: Not indicated-Anticoagulated or INR therapeutic Consult Discharge Plan - Plan Referrals: NONE,PCP [Primary Care Provider] -
[2018-11-08] MEDS: Aspirin 81 MG TAB.CHEW PO SCH (09:18)
[2018-11-08] MEDS: Nicotine 14 MG PATCH.TD24 TD SCH (09:18)
[2018-11-08] MEDS: *HR* Heparin 5,000 UNIT/ML VIAL SQ SCH ×2 (09:25→17:29)
[2018-11-08] MEDS ORDERED: *HR* HYDROcodone/Acet 5/325 mg TABLET PO PRN (09:56)
[2018-11-08 10:00] LABS: Basophils # 0.1 K/mcL (0.0-0.2); Basophils % 0.3 %; Eosinophils # 0.1 K/mcL (0.0-0.6); Eosinophils % 0.3 %; Hematocrit 45.5 % (37.5-50.1); Hemoglobin 14.8 g/dL (12.9-16.9); Immature Granulocytes % 0.8 % (0-4); Lymphocytes # 2.9 K/mcL (0.6-4.6); Lymphocytes % 13.8 %; Mean Corpuscular HGB Conc 32.5 g/dL (31.6-35.5); Mean Corpuscular Hemoglobin 28.5 pg (28.0-33.3); Mean Corpuscular Volume 87.5 fL (83.0-100.0); Mean Platelet Volume 8.5 fL (9.4-12.4); Monocytes # 1.6 K/mcL (0.0-1.3); Monocytes % 7.5 %; Neutrophils # 16.3 K/mcL (1.6-8.9); Platelet Count 386 K/mcL (140-400); Red Cell Distribution Width 16.3 % (11.5-14.5); Segmented Neutrophils % 77.3 %
[2018-11-08 10:07] LABS: Estimated Average Glucose 131 mg/dl; Hemoglobin A1C 6.2 %
[2018-11-08 10:11] LABS: BUN/Creatinine Ratio 12 (6-26); Blood Urea Nitrogen 8 mg/dL (6-20); Calcium 8.7 mg/dL (8.6-10.3); Carbon Dioxide 23 mEq/L (23-29); Chloride 106 mEq/L (98-107); Chol/HDL Ratio 5.3 (0-4.9); Cholesterol 163 mg/dL (< 200); Glucose 113 mg/dL (70-105); HDL Cholesterol 31 mg/dL (40-59); LDL Cholesterol,Calculated 95 mg/dL (0-99); Osmolality,Calculated 283 (280-300); Potassium 3.9 mEq/L (3.5-5.1); Sodium 137 mEq/L (136-145); Triglycerides 186 mg/dL (< 150); eGFR For Non-African Americans > 60 (> 60)
[2018-11-08 10:13] LABS: Troponin I 1.37 ng/mL (< 0.04)
[2018-11-09] MEDS: *HR* Heparin 5,000 UNIT/ML VIAL SQ SCH (06:17)
[2018-11-09] MEDS: Nicotine 14 MG PATCH.TD24 TD SCH (08:03)
[2018-11-09] MEDS: Aspirin 81 MG TAB.CHEW PO SCH (08:03)
--- NOTE | 2018-11-09 08:47 | Discharge Summary ---
Orders not resulted at time of discharge: Pending orders 11/07/18 18:09 CL Cardiac Catheterization [CL] Stat 11/07/18 19:09 ECG 12 lead ECG [ECG] Routine ECG 12 lead ECG [ECG] Stat 11/08/18 06:00 ECG 12 lead ECG [ECG] AM 0600 11/08/18 07:00 ECG 12 lead ECG [ECG] Routine Date of Encounter: 11/09/18 Time of Encounter: 09:00 - Discharge Diagnosis (1) STEMI (ST elevation myocardial infarction) Priority: Primary Status: Acute Qualifiers: Involved coronary artery: LAD coronary artery Qualified Code(s): I21.02 - ST elevation (STEMI) myocardial infarction involving left anterior descending coronary artery - Hospital Course Hospital course: Mr. Herrera is a 53 year old male presented with acute anteroseptal VT. Und erwent emergent C 11/07/18: s/p successful PTCA/ to pLAD; otherwise mild- moderate non-obstructive CAD--30% dLMCA, 50% 1st diagonal, 40% pLCx, 30% ramus, 30% pRCA, 40% mRCA, 30% dRCA. Echo showed preserved EF with no significant valvular dysfunction. No complications during hospital stay. Chest pain-free. Right groin site stable. Post VT and post procedure education provided. Medications reviewed and discussed, importance of dual antiplatelet therapy reinforced. Patient verbalized understanding and agree to plan. Plan for discharge today. Time spent discussing smoking cessation with patient: 3 to 10 minutes - Time Spent with Patient Total time spent providing and/or coordinating discharge services: Less than 30 minutes - Discharge Medications Prescriptions: Nitroglycerin 0.4 mg SL Q5MIN PRN #30 tab.subl PRN Reason: Chest Pain Atorvastatin [Lipitor] 80 mg PO HS #60 tablet Clopidogrel [Plavix] 75 mg PO DAILY #30 tablet Lisinopril [Zestril] 2.5 mg PO DAILY #30 tablet Metoprolol [Lopressor] 25 mg PO BID #60 tablet Nicotine Patch [Nicoderm] 14 mg TD DAILY #30 patch.td24 Home Medications: Tamsulosin [Flomax] 0.4 mg PO DAILY 03/09/18 [History] traZODone [TraZODone] 50 mg PO HS PRN #30 tablet 03/12/18 [Rx] Venlafaxine HCl 100 mg PO BID 11/07/18 [History] hydrOXYzine HCl [Hydroxyzine HCl] 25 mg PO TID PRN 11/07/18 [History] Aspirin 81 mg PO DAILY tab.chew 11/09/18 [Rx] Atorvastatin [Lipitor] 80 mg PO HS #60 tablet 11/09/18 [Rx] Clopidogrel [Plavix] 75 mg PO DAILY #30 tablet 11/09/18 [Rx] Lisinopril [Zestril] 2.5 mg PO DAILY #30 tablet 11/09/18 [Rx] Metoprolol [Lopressor] 25 mg PO BID #60 tablet 11/09/18 [Rx] Nicotine Patch [Nicoderm] 14 mg TD DAILY #30 patch.td24 11/09/18 [Rx] Nitroglycerin 0.4 mg SL Q5MIN PRN #30 tab.subl 11/09/18 [Rx] Allergies/Adverse Reactions: Allergy/AdvReac Type Severity Reaction Status Date / Time No Known Allergies Allergy Verified 03/09/18 16:04 Date of admission: 11/07/18 18:59 Primary care physician: PCP NONE Consults: 11/07/18 19:09 Consult to Cardiac Rehabilitation-Phase1 [CONS] Routine Comment: Reason for Consult: AMI Call Completed: Yes Consult to Nurse Navigator [CONS] Routine Comment: Discharging clinician: Darek Keyes Anticipated date of discharge: 11/09/18 Physical Examination Vital Signs, Last 4 Hours Temp Pulse Resp BP Pulse Ox 11/09/18 08:40 98.6 F 11/09/18 06:14 67 16 155/73 92 11/09/18 05:00 65 16 115/68 93 ECHO: Lesion Findings/Interventions * Left Main Coronary Artery The LMCA is angiographically free of disease. * Left Anterior Descending There is a 10 mm long, 80-90% stenosis in the Mid LAD. Mild disease distal to this stent with 2mm vessel. The lesion has a JAVY flow of 3. An intervention was performed on the Mid LAD with a final stenosis of 0%. There were no lesion complications. The final JAVY flow was 3. * Circumflex Cx/OM patent stent General: Conversant, No Apparent Distress HEENT: Atraumatic, Normocephaly, Mucus Membranes Moist Neck: No JVD, Normal carotid pulses Cardiac: Reg Rate and Rhythm, Normal S1 and S2, No Murmur Lungs: Normal Breath Sounds, No Wheeze, Rales, Rhonchi Neuro: Alert and responsive, No focal deficits noted Abdomen: Soft, Non-Tender Skin: No rashes noted on visualized skin, Other (Right groin site dry and intact, moderate ecchymosis, no hematoma, no bleeding, right PT and DP 1+ palpable) Musculoskeletal: No Chest Wall Tenderness Extremities: No Clubbing, No Cyanosis, No Edema, Normal Pulses - Patient Status Disposition: Home, Self-Care Condition: Fair Functional capacity at discharge: independent ambulation Overall status at discharge: patient is progressing back to baseline - Discharge Instructions Follow Up With: Darren Swift MD [Partnered Physician] - (Appointment requested. Office will call patient with appointment date/time. Patient lives in [place] and would like to be seen closer to home if at all possible.) Darek Keyes CNP [Advanced Practice Nurse] - (Appointment requested. Office will call patient with appointment date/time. Patient lives in [place]. He would like to be seen in [place] if possible.) NONE,PCP [Primary Care Provider] - Additional Instructions: RISK FACTORS: STOP SMOKING: If you smoke, STOP. Smoking or tobacco use significantly increases your risk of heart disease because nicotine causes the arteries to narrow or constrict. It also causes fats to stick to the artery. Your chances of having a heart attack are greatly increased if you continue to smoke. For more information, call the education line for smoking cessation 8-184-IHEVUVM EAT A LOW FAT/CHOLESTEROL/SODIUM DIET: This diet may help reduce your chances of having a heart attack. LIFTING: Avoid lifting anything more than 10 pounds for 5-7 days Prior to straining, laughing, sneezing and/or coughing, apply manual pressure directly over insertion site. ACTIVITY: You may walk or climb stairs as tolerated You can resume sexual activity as tolerated In general, you are encouraged to engage in a minimum of 30 minutes or more of moderate intensity physical activity, such as brisk walking, daily or at least 3-4 times weekly BATHING Do not submerge the site into water (bath tub, hot tub, swimming pool) for 1 week. This can be a source for infection into the blood stream. You may shower after 24 hours SITE CARE: After 24 hours, you may remove the dressing and leave the site open to air. Keep the site clean and dry. Clean gently and pat dry. You can expect bruising and tenderness that gradually resolve within a week or two. Return to work as instructed per your physician Resume driving as instructed per physician Keep all scheduled follow up appointments Resume medications as instructed IMPORTANT: If prescribed a Platelet Aggregation Inhibitor such as, Plavix, Brilinta or Effient: Duration of therapy is minimum one year These medications are often used in combination with Aspirin in prevention of future heart attacks Never discontinue unless consult with your Immunochemist STROKE (CVA) Risk factors for a stroke are: Age, cigarette smoking, diabetes, excessive alcohol consumption, family history, high blood pressure, overweight, physical inactivity, prior stroke, heart attack, diagnosis of carotid artery stenosis or other artery disease. Warning signs: Sudden numbness or weakness of the face, arm or leg; especially on one side of the body, sudden confusion, trouble speaking or understanding, sudden trouble seeing in one or both eyes, sudden trouble walking, dizziness, loss of balance or coordination, sudden severe headache with no cause. Call 911 or go to the Emergency Room. CONGESTIVE HEART FAILURE: If you have been diagnosed with Congestive Heart Failure (CHF) and your symptoms return, make an appointment with your physician Weigh yourself daily. Notify your physician if you have a weight gain of two or more pounds in one day or five or more pounds in one week. If you experience any difficulty breathing, please call 911 BLEEDING: Although the risk of bleeding is minimal, it can happen. If you have any bleeding from the site, apply firm pressure above the puncture site for 10-15 minutes. If the bleeding does not stop, continue manual pressure and call 911 Contact your physician if: You develop a fever greater than 101 degrees Fahrenheit Your site becomes reddened or has any drainage You have an increase in pain or burning at the site or if a large knot forms at the site. If you experience chest pain, shortness of breath, dizziness, or extreme tiredness, stop the activity and rest. Please notify your physicians office if you experience any of these symptoms and they are not relieved by rest please call 911! - Diet and Activity Diet: low fat, low cholesterol, low salt diet - VTE Reasons for not Prescribing Prophylaxis: Not indicated-Anticoagulated or INR therapeutic
[2018-11-09 09:22] VITALS: BP 97/75
--- NOTE | 2018-11-09 20:39 | Electrocardiograph Report ---
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
--- NOTE | 2018-11-09 20:40 | Electrocardiograph Report ---
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
== END 2018-11-09 11:20 | disposition home or self-care (01) | DRG 174 ==
LOC: EMEROOARM 18:07 → ICNU 18:19
PROVIDERS: ADMIT Internal Medicine Interventional Cardiology; ATTEND Internal Medicine Interventional Cardiology